=== PATIENT | female | born 1975 | race African-American/Black ===

== ENCOUNTER 2017-03-26 04:39 | Emergency (ER) | payer OTHER ==
[2017-03-26] MEDS ORDERED: Morphine 4 MG/ML Carpuject ONE (05:03)
[2017-03-26 05:37] LABS: BHCG - Serum Negative (NEGATIVE); Pregs Control Background? CLEAR/WHITE (CLR/WHITE); Pregs Control Bar Appear? YES (CONTROL BAR)
[2017-03-26 05:44] LABS: ALT (SGPT) 127 U/L (8-55); AST (SGOT) 167 U/L (5-34); Albumin 4.5 g/dL (3.5-5.0); Alkaline Phosphatase 82 U/L (40-150); Anion Gap 14 mmol/L (10-20); BUN (Urea Nitrogen) 7 mg/dL (7.0-18.7); Bilirubin, Total 0.5 mg/dL (0.2-1.2); Calc. Creatinine Clearance 0 mL/min (70-130); Calcium 10.3 mg/dL (7.8-10.44); Carbon Dioxide 27 mmol/L (22-29); Chloride 103 mmol/L (98-107); Estimated GFR-MDRD Greater than 90; Globulin 4.3 g/dL (2.4-3.5); Glucose 96 mg/dL (70-105); Lipase 39 U/L (8-78); Magnesium 1.6 mg/dL (1.6-2.6); Potassium 3.5 mmol/L (3.5-5.1); Protein, Total 8.8 g/dL (6.0-8.3); Sodium 140 mmol/L (136-145)
[2017-03-26 06:13] LABS: #Basophils 0.1 thou/uL (0.0-0.2); #Eosinphils 0.1 thou/uL (0.0-0.7); #Lymphocytes 3.1 thou/uL (1.20-3.40); #Monocytes 0.7 thou/uL (0.11-0.59); #Neutrophils 3.5 thou/uL (1.40-6.50); %Basophils 1.1 % (0.0-1.0); %Eosinophils 1.2 % (0.0-10.0); %Lymphocytes 41.5 % (21.0-51.0); %Monocytes 9.1 % (0.0-10.0); %Neutrophils 47.1 % (42.0-75.0); Hemoglobin 12.9 g/dL (12.0-16.0); MDiff Complete? YES; Mean Platelet Volume 8.5 fL (7.4-10.4); PLT Morphology Comment Appears Adequate; Platelet Count 282 thou/uL (130-400); RBC Distribution Width 11.1 % (11.5-14.5); Stomatocytes SLIGHT = 2-5 cells (100X) (0-1/hpf); White Blood Cell (WBC) Count 7.5 thou/uL (4.8-10.8)
[2017-03-26] MEDS ORDERED: Dicyclomine 20 MG TAB ONE (06:28)
[2017-03-26] MEDS ORDERED: Lidocaine Viscous Sol 2% 15 ml UD Cup ONE (06:28)
[2017-03-26] MEDS ORDERED: Mag-Al 1200 mg/1200 mg/30 ML UDCUP ONE (06:28)
--- NOTE | 2017-03-26 07:40 | CT ---
PRELIMINARY REPORT/[facility]/EMERGENCY AFTER HOURS PROCEDURE: EXAM: CT Abdomen and Pelvis With Intravenous Contrast CLINICAL HISTORY: 41 years old, female; Pain; Abdominal pain; Generalized; Patient HX: Abd pain TECHNIQUE: Axial computed tomography images of the abdomen and pelvis with intravenous contrast. Coronal reformatted images were created and reviewed. CONTRAST: 70 mL of ISOVUE administered intravenously. COMPARISON: No relevant prior studies available. FINDINGS: Lower thorax: No acute findings. ABDOMEN: Liver: Unremarkable. No mass. Gallbladder and bile ducts: Unremarkable. No calcified stones. No ductal dilation. Pancreas: Unremarkable. No mass. No ductal dilation. Spleen: Unremarkable. No splenomegaly. Adrenals: Unremarkable. No mass. Kidneys and ureters: Unremarkable. No solid mass. No hydronephrosis. Stomach and bowel: No obstruction. Mild mucosal thickening. Appendix: No findings to suggest acute appendicitis. PELVIS: Bladder: Decompressed and. Reproductive: Unremarkable as visualized. ABDOMEN and PELVIS: Intraperitoneal space: Unremarkable. No free air. No significant fluid collection. Bones/joints: No acute fracture. No dislocation. Soft tissues: Unremarkable. Vasculature: Unremarkable. No abdominal aortic aneurysm. Lymph nodes: Unremarkable. No enlarged lymph nodes. IMPRESSION: Nonspecific nonobstructed bowel gas pattern. Correlate for enteritis Thank you for allowing us to participate in the care of your patient. Dictated and Authenticated by: August Smith MD 03/26/2017 6:20 AM Central Time ([place] & [place]) FINAL REPORT CT OF THE ABDOMEN AND PELVIS: DATE: 03/26/17. COMPARISON: 01/22/16. HISTORY: Abdominal pain with right lower quadrant tenderness. FINDINGS: I agree with the preliminary [facility] report. Imaged lung bases are unremarkable. No free intraperitoneal air. The liver, spleen, gallbladder, pancreas, adrenal glands, and kidneys are unremarkable. There is questionable mild wall thickening versus underdistension of the cecum and ascending colon. Appendix is not discretely visualized. No convincing evidence for appendicitis seen. There is mild fluid-filed distended small bowel loop formation in lower abdomen and pelvis. There is scattered atherosclerotic calcification of the abdominal aorta and its branches with no lymp hadenopathy noted. No acute osseous abnormality is seen. IMPRESSION: There is mild distention of distal fluid-filled small bowel loops. There is questionable mild inflam matory change involving the ascending versus underdistension. These findings may represent colitis/e nteritis. No evidence for free intraperitoneal air, small bowel obstruction, or appendicitis. POS: [facility]
--- NOTE | 2017-03-26 07:41 | RAD ---
PORTABLE UPRIGHT FRONTAL CHEST: Date: 03/26/17 COMPARISON: 01/22/16. HISTORY: Right-sided abdominal pain, epigastric pain, shortness of breath. FINDINGS: No pneumothorax, pleural fluid, focal consolidation, or alveolar edema. Heart and mediastinal contour s are grossly unremarkable. IMPRESSION: No acute findings. POS: [facility]
[2017-03-26] MEDS ORDERED: ISOVUE-370 76%-LOCM 1 ML ONE (11:53)
== END 2017-03-26 08:03 | disposition home or self-care (01) ==
LOC: ERS 04:39
DX: A08.4 Viral intestinal infection, unspecified (principal); I10 Essential (primary) hypertension; F32.9 Major depressive disorder, single episode, unspecified; F17.210 Nicotine dependence, cigarettes, uncomplicated
CPT/HCPCS: 71045; 74177; 80053; 83690; 83735; 84703; 85025; 93005; 96361; 96374; J2270

== ENCOUNTER 2017-08-26 23:58 | Emergency (ER) | payer OTHER ==
[2017-08-27 00:32] LABS: #Basophils 0.1 thou/uL (0.0-0.2); #Eosinphils 0.1 thou/uL (0.0-0.7); #Lymphocytes 2.9 thou/uL (1.20-3.40); #Monocytes 0.5 thou/uL (0.11-0.59); #Neutrophils 2.7 thou/uL (1.40-6.50); %Basophils 1.5 % (0.0-1.0); %Eosinophils 1.7 % (0.0-10.0); %Lymphocytes 45.7 % (21.0-51.0); %Monocytes 8.4 % (0.0-10.0); %Neutrophils 42.7 % (42.0-75.0); Hemoglobin 12.7 g/dL (12.0-16.0); Mean Corpuscular HGB CONC 35.4 g/dL (32.0-36.0); Mean Corpuscular Hemoglobin 36.4 pg (27.0-31.0); Mean Platelet Volume 8.9 fL (7.4-10.4); Platelet Count 199 thou/uL (130-400); RBC Distribution Width 11.3 % (11.5-14.5); Red Blood Cell (RBC) Count 3.49 mill/uL (4.20-5.40); White Blood Cell (WBC) Count 6.4 thou/uL (4.8-10.8)
[2017-08-27 00:37] LABS: Prothrombin Time 12.9 SEC (12.0-14.7)
[2017-08-27 01:20] LABS: CKMB 0.3 ng/mL (0-6.6); Troponin I Less than 0.010 ng/mL (< 0.028)
[2017-08-27 01:22] LABS: ALT (SGPT) 79 U/L (8-55); AST (SGOT) 160 U/L (5-34); Albumin 4.4 g/dL (3.5-5.0); Alkaline Phosphatase 74 U/L (40-150); Anion Gap 19 mmol/L (10-20); BUN (Urea Nitrogen) 5 mg/dL (7.0-18.7); Bilirubin, Total 0.2 mg/dL (0.2-1.2); Calc. Creatinine Clearance 0 mL/min (70-130); Calcium 9.9 mg/dL (7.8-10.44); Carbon Dioxide 20 mmol/L (22-29); Chloride 102 mmol/L (98-107); Estimated GFR-MDRD Greater than 90; Globulin 4.4 g/dL (2.4-3.5); Glucose 81 mg/dL (70-105); Protein, Total 8.8 g/dL (6.0-8.3); Sodium 137 mmol/L (136-145)
[2017-08-27] MEDS ORDERED: Ibuprofen 200 MG TAB ONE (01:57)
--- NOTE | 2017-08-27 07:50 | RAD ---
CHEST 1 VIEW: HISTORY: Chest pain. COMPARISON: 03/26/17. FINDINGS: Cardiac silhouette magnified by projection. Pulmonary vasculature unremarkable. Mediastinum midline . No lobar consolidation or evidence of pneumothorax. Old right rib fracture. child advocate lead s overlie the chest. IMPRESSION: No active cardiopulmonary abnormalities are demonstrated. POS: [facility]
== END 2017-08-27 02:45 | disposition home or self-care (01) ==
LOC: ERS 23:58
DX: R07.89 Other chest pain (principal); R04.0 Epistaxis; I10 Essential (primary) hypertension; F32.9 Major depressive disorder, single episode, unspecified; F17.210 Nicotine dependence, cigarettes, uncomplicated
CPT/HCPCS: 71045; 80053; 82553; 84484; 85025; 85610; 93005; 96360

== ENCOUNTER 2018-03-14 00:33 | Inpatient (IN) | payer OTHER ==
[2018-03-14 01:10] LABS: Bilirubin Negative (Negative); Blood, Urine Negative (Negative); Clarity CLEAR (Clear); Glucose, Urine (Dipstick) Negative (Negative); Leukocyte Negative (Negative); Nitrite Negative (Negative); Protein, Urine (Dipstick) Negative (Neg-Trace); Specific Gravity, Urine 1.006 (1.002-1.036); Urobilinogen 0.2 mg/dL (0.2-1.0)
[2018-03-14 01:19] LABS: Amphetamine Not Detected (NotDetected); Barbiturates Screen Not Detected (NotDetected); Benzodiazepine Screen Not Detected (NotDetected); Cocaine Metabolite Screen Not Detected (NotDetected); Medtox Control Line Valid? VALID (VALID); Medtox Reader # READER 1; Methadone Not Detected (NotDetected); Methamphetamine Not Detected (NotDetected); Opiate Screen Not Detected (NotDetected); Oxycodone Screen Not Detected (NotDetected); Phencyclidine (PCP) Not Detected (NotDetected); THC/Cannabinoid Screen Not Detected (NotDetected); Tricyclic Screen Not Detected (NotDetected)
[2018-03-14 01:19] LABS: #Basophils 0.1 thou/uL (0.0-0.2); #Eosinphils 0.1 thou/uL (0.0-0.7); #Lymphocytes 3.3 thou/uL (1.20-3.40); #Monocytes 0.3 thou/uL (0.11-0.59); #Neutrophils 2.9 thou/uL (1.40-6.50); %Basophils 1.8 % (0.0-1.0); %Eosinophils 1.7 % (0.0-10.0); %Monocytes 4.5 % (0.0-10.0); %Neutrophils 43.1 % (42.0-75.0); Hemoglobin 13.3 g/dL (12.0-16.0); Mean Corpuscular HGB CONC 34.1 g/dL (32.0-36.0); Mean Corpuscular Hemoglobin 34.6 pg (27.0-31.0); Platelet Count 310 thou/uL (130-400); RBC Distribution Width 11.1 % (11.5-14.5); Red Blood Cell (RBC) Count 3.85 mill/uL (4.20-5.40); White Blood Cell (WBC) Count 6.6 thou/uL (4.8-10.8)
[2018-03-14 01:48] LABS: Acetaminophen Less than 6.0 mcg/mL (10.0-30.0); Alcohol 343 mg/dL (Less than 10); CK (CPK) 303 U/L (29-168); Salicylate Less than 8.0 mg/dL (15.0-30.0)
[2018-03-14 01:49] LABS: ALT (SGPT) 34 U/L (8-55); AST (SGOT) 83 U/L (5-34); Albumin 4.4 g/dL (3.5-5.0); Alkaline Phosphatase 82 U/L (40-150); Anion Gap 19 mmol/L (10-20); BUN (Urea Nitrogen) 4 mg/dL (7.0-18.7); Bilirubin, Total 0.2 mg/dL (0.2-1.2); Calc. Creatinine Clearance 0 mL/min (70-130); Calcium 9.8 mg/dL (7.8-10.44); Carbon Dioxide 22 mmol/L (22-29); Chloride 105 mmol/L (98-107); Estimated GFR-MDRD Greater than 90; Globulin 4.8 g/dL (2.4-3.5); Glucose 138 mg/dL (70-105); Protein, Total 9.2 g/dL (6.0-8.3); Sodium 143 mmol/L (136-145)
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
[2018-03-14] MEDS ORDERED: Sodium Chloride 0.9% 1,000 ML IV SCH (03:45)
[2018-03-14] MEDS ORDERED: Multivitamins, Adult 10 ML, Folic Acid 1 MG, Thiamine HCl 100 MG in Dextrose 5 %-0.45 %... IV SCH ×2 (04:00→09:23)
[2018-03-14] MEDS ORDERED: Potassium Chloride 40 MEQ in Sodium Chloride 0.9% 500 ML IVPB SCH (04:00)
[2018-03-14] MEDS ORDERED: CCU Electrolyte Replacement 1 EACH IVPB ONE (05:36)
[2018-03-14] MEDS ORDERED: Potassium Phosphate 9 MMOL in Sodium Chloride 0.9% 100 ML IVPB PRN (05:40)
[2018-03-14] MEDS ORDERED: Potassium Chloride 40 MEQ in Sodium Chloride 0.9% 250 ML 250 ML IVPB PRN (05:40)
[2018-03-14] MEDS ORDERED: Potassium Chloride 20 MEQ TAB PO PRN (05:40)
[2018-03-14] MEDS ORDERED: Potassium Phosphate 15 MMOL in Sodium Chloride 0.9% 250 ML 250 ML IV PRN (05:40)
[2018-03-14] MEDS ORDERED: Potassium Phosphate 12 MMOL in Sodium Chloride 0.9% 250 ML 250 ML IV PRN (05:40)
[2018-03-14] MEDS ORDERED: Magnesium 2 GM/NS 0.9% 100 ML 2 GM in Premix Bag 1 BAG IVPB PRN (05:40)
[2018-03-14] MEDS ORDERED: CCU ELECTROLYTE REPLACEMENT PROTOCOL FS PRN (05:40)
[2018-03-14] MEDS ORDERED: Magnesium Oxide 400 MG TAB PO PRN ×2 (05:40)
[2018-03-14] MEDS ORDERED: Potassium Chloride 40 MEQ in Premix Bag 1 BAG IVPB PRN (05:40)
[2018-03-14 06:23] LABS: Anion Gap 17 mmol/L (10-20); BUN (Urea Nitrogen) Less than 4 mg/dL (7.0-18.7); Calc. Creatinine Clearance 78 mL/min (70-130); Calcium 9.6 mg/dL (7.8-10.44); Carbon Dioxide 25 mmol/L (22-29); Chloride 103 mmol/L (98-107); Estimated GFR-MDRD Greater than 90; Glucose 112 mg/dL (70-105); Potassium 3.1 mmol/L (3.5-5.1); Sodium 142 mmol/L (136-145)
[2018-03-14 06:39] LABS: INR-International Normal Ratio 1.1; Prothrombin Time 14.3 SEC (12.0-14.7)
[2018-03-14 06:40] LABS: PTT 31.6 SEC (22.9-36.1)
[2018-03-14 06:58] LABS: Anion Gap 17 mmol/L (10-20); BUN (Urea Nitrogen) Less than 4 mg/dL (7.0-18.7); Calc. Creatinine Clearance 89 mL/min (70-130); Calcium 9.5 mg/dL (7.8-10.44); Carbon Dioxide 24 mmol/L (22-29); Chloride 104 mmol/L (98-107); Estimated GFR-MDRD Greater than 90; Glucose 129 mg/dL (70-105); Magnesium 1.9 mg/dL (1.6-2.6); Potassium 3.3 mmol/L (3.5-5.1); Sodium 142 mmol/L (136-145)
[2018-03-14 07:11] LABS: HBSAg Index 0.32 S/CO (0-0.99); Hep B Surf Ag Non-Reactive S/CO (NonReactive); Hep C IgG Ab Non-Reactive (NonReactive); Hep C Index 0.35 S/CO (0-0.79)
[2018-03-14 07:15] LABS: Syphilis Antibody Nonreactive (Nonreactive); Syphilis Antibody Index 0.36 S/CO (<1.00 Non-Reactive)
--- NOTE | 2018-03-14 07:26 | PDOC.EVN ---
Event Note - Event Note Event Note: Suspect patient took: Initially took tabs around 1930, then again at 0000 9 pills norvasc Unknown HCTZ Unknown Protonix Daily 30 beers drinker This AM patient is Ax0x3. States she has a headache unless she is asleep. Does not want to talk, "just let me sleep, and I'll talk to you tomorrow." Gen: no acute distress CV: RRR, no murmur Resp: CTA-B Abd: tender to palpation on RUQ, hepatomegaly Ext: pulses intact, no edema Addendum - Attending - Attending Attestation Date/Time: 03/14/18 8453 I personally evaluated the patient and discussed the management with Dr. Vicky Patel I agree with the History, Examination, Assessment and Plan documented above with any addition or exceptions noted below. Patient reluctant to cooperate with exam stress need continued observation.
[2018-03-14 07:59] LABS: HIV (1/2) Antibody/Antigen Non-Reactive (NonReactive)
[2018-03-14 08:00] LABS: HIV 1/2 INDEX 0.11 S/CO (<1.00)
[2018-03-14] MEDS ORDERED: Lorazepam 2 MG/ML VIAL SLOW IVP PRN (09:22)
--- NOTE | 2018-03-14 09:47 | CON ---
DATE OF CONSULTATION: 03/14/2018 SERVICE: Pulmonary Medicine. REASON FOR CONSULTATION: ICU patient. HISTORY OF PRESENT ILLNESS: The patient is a 42-year-old female with past medical history significant for polysubstance drug abuse and multiple suicide attempts. She was in her usual state of health when she intentionally overdosed on amlodipine, Protonix, and hydrochlorothiazide. The patient also has a significant history of alcohol use. Ultimately, she took these things in because she wanted to . She was subsequently brought to the emergency department. Poison Control has recommended that we follow basic metabolic profile and EKGs for an additional 24 hours. That being said, the ingestion was around 7:00 yesterday evening, and at this point, she is not having any significant hemodynamic instability. Her heart rate remains just fine. The patient hurts everywhere you touch her. She hurts in her belly, chest, had complaints of headache, lower extremity discomfort. PAST MEDICAL HISTORY: 1. Major depressive disorder. 2. History of alcoholic hepatitis. 3. Alcohol abuse. 4. History of multiple suicide attempts. PAST SURGICAL HISTORY: Hysterectomy. FAMILY HISTORY: Noncontributory. SOCIAL HISTORY: She has a 30 pack-year history of smoking and has a very heavy alcohol use over 30 beers on a daily basis. She denies any significant street drugs. She has no exposure to chemicals, dust, asbestos, or tuberculosis. ALLERGIES: NO KNOWN DRUG ALLERGIES. MEDICATIONS: List of her inpatient medications was reviewed and modified. REVIEW OF SYSTEMS: General, head, ears, eyes, nose, and throat, cardiovascular, respiratory, GI, , musculoskeletal, neurologic, and skin are negative except as mentioned in the HPI. PHYSICAL EXAMINATION: VITAL SIGNS: Afebrile. Pulse 95, blood pressure 124/85, respirations 15, and saturation 95% on room air. GENERAL: The patient is awake and alert, in no apparent distress. LUNGS: Decent air entry. There is no prolonged expiratory phase or wheezing present. HEART: Normal rate, regular. ABDOMEN: Tender to palpation throughout. That being said, there is no rebound or guarding. Bowel sounds are active. : No Gallegos. NEUROLOGIC: Grossly nonfocal. LABORATORY DATA: WBC 6.6, hemoglobin 13.3, platelets 310,000. INR 1.1. Potassium 3.3. Basic metabolic profile is otherwise unremarkable. Magnesium 1.9. Alcohol level is 343. Urine drug screen, salicylates, and acetaminophen are otherwise negative. HIV is nonreactive. Hepatitis C and hepatitis B are nonreactive. Syphilis is nonreactive. ASSESSMENT: 1. Suicide attempt with overdose on calcium-channel hilton, and hydrochlorothiazide and Protonix. 2. Alcohol abuse with no reported history of withdrawal. 3. Suicide attempt. DISCUSSION AND PLAN: At this point, the patient is over 12 hours in from her ingestion. Hemodynamically, she has been stable. As such, we can transition the patient to the telemetry unit for additional observation for another 24 hours. I will replace her potassium. I will initiate some alcohol to prevent any withdrawal features as the patient has no intentions of discontinuing this habit. Pulmonary will continue to follow for one additional day, but if she demonstrates hemodynamic stability into tomorrow, we will sign off. Please call with additional questions or concerns. Job ID: [id number]
[2018-03-14] MEDS ORDERED: Magnesium 2 GM/50 ML 2 GM in Premix Bag 1 BAG IVPB SCH (10:30)
[2018-03-14] MEDS: Folic Acid 1 MG TAB PO SCH (11:03)
[2018-03-14] MEDS: Potassium Chloride 20 MEQ TAB PO SCH ×2 (11:03→14:14)
[2018-03-14] MEDS: Enoxaparin Sodium 40 MG/0.4 ML SYRINGE SC SCH (11:04)
[2018-03-14] MEDS: Nicotine 21 MG PATCH TD SCH (11:04)
[2018-03-14] MEDS: Sodium Chloride 0.45% 1,000 ML IV SCH ×2 (11:18→23:00)
[2018-03-14 13:37] LABS: ALT (SGPT) 31 U/L (8-55); AST (SGOT) 78 U/L (5-34); Albumin 4.2 g/dL (3.5-5.0); Alkaline Phosphatase 77 U/L (40-150); Anion Gap 16 mmol/L (10-20); BUN (Urea Nitrogen) Less than 4 mg/dL (7.0-18.7); Bilirubin, Total 0.4 mg/dL (0.2-1.2); Calc. Creatinine Clearance 77 mL/min (70-130); Calcium 9.4 mg/dL (7.8-10.44); Carbon Dioxide 23 mmol/L (22-29); Chloride 104 mmol/L (98-107); Estimated GFR-MDRD Greater than 90; Globulin 4.6 g/dL (2.4-3.5); Glucose 101 mg/dL (70-105); Potassium 3.4 mmol/L (3.5-5.1); Protein, Total 8.8 g/dL (6.0-8.3); Sodium 140 mmol/L (136-145)
--- NOTE | 2018-03-14 14:01 | ULT ---
HEPATIC SONOGRAM WITH DUPLEX EVALUATION: History Liver disease. FINDINGS: Gallbladder has a normal appearance without evidence of stones. The common duct is 0.3 cm. Liver un remarkable without focal mass or intrahepatic biliary dilatation. The spleen is 6.5 cm. NO free flu id. Good color flow and spectral Doppler flow within the hepatic and splenic arteries. Poral venous flow is towards the liver. Hepatic venous flow is towards the IVC. IMPRESSION: Normal exam. POS: [facility]
[2018-03-14] MEDS: Lorazepam 1 MG TAB PO SCH ×2 (14:15→20:21)
[2018-03-14 15:26] LABS: ALT (SGPT) 33 U/L (8-55); AST (SGOT) 82 U/L (5-34); Albumin 4.3 g/dL (3.5-5.0); Alkaline Phosphatase 80 U/L (40-150); Anion Gap 18 mmol/L (10-20); BUN (Urea Nitrogen) Less than 4 mg/dL (7.0-18.7); Bilirubin, Total 0.5 mg/dL (0.2-1.2); Calc. Creatinine Clearance 73 mL/min (70-130); Calcium 9.9 mg/dL (7.8-10.44); Carbon Dioxide 22 mmol/L (22-29); Chloride 101 mmol/L (98-107); Estimated GFR-MDRD Greater than 90; Globulin 4.9 g/dL (2.4-3.5); Glucose 92 mg/dL (70-105); Magnesium 2.6 mg/dL (1.6-2.6); Protein, Total 9.2 g/dL (6.0-8.3); Sodium 137 mmol/L (136-145)
[2018-03-14] MEDS: Labetalol HCl 100 MG/20 ML VIAL SLOW IVP PRN (19:12)
[2018-03-14 19:40] LABS: ALT (SGPT) 35 U/L (8-55); AST (SGOT) 85 U/L (5-34); Albumin 4.6 g/dL (3.5-5.0); Alkaline Phosphatase 86 U/L (40-150); Anion Gap 16 mmol/L (10-20); BUN (Urea Nitrogen) 7 mg/dL (7.0-18.7); Bilirubin, Total 0.7 mg/dL (0.2-1.2); Calc. Creatinine Clearance 68 mL/min (70-130); Calcium 10.4 mg/dL (7.8-10.44); Carbon Dioxide 27 mmol/L (22-29); Chloride 99 mmol/L (98-107); Estimated GFR-MDRD Greater than 90; Globulin 4.6 g/dL (2.4-3.5); Glucose 104 mg/dL (70-105); Magnesium 2.3 mg/dL (1.6-2.6); Potassium 4.5 mmol/L (3.5-5.1); Protein, Total 9.2 g/dL (6.0-8.3); Sodium 137 mmol/L (136-145)
[2018-03-14 23:24] LABS: ALT (SGPT) 29 U/L (8-55); AST (SGOT) 69 U/L (5-34); Alkaline Phosphatase 75 U/L (40-150); Anion Gap 14 mmol/L (10-20); BUN (Urea Nitrogen) 9 mg/dL (7.0-18.7); Bilirubin, Total 0.6 mg/dL (0.2-1.2); Calc. Creatinine Clearance 63 mL/min (70-130); Calcium 9.7 mg/dL (7.8-10.44); Carbon Dioxide 24 mmol/L (22-29); Chloride 98 mmol/L (98-107); Estimated GFR-MDRD Greater than 90; Globulin 4.3 g/dL (2.4-3.5); Glucose 109 mg/dL (70-105); Potassium 4.1 mmol/L (3.5-5.1); Protein, Total 8.3 g/dL (6.0-8.3); Sodium 132 mmol/L (136-145)
[2018-03-14] MEDS ORDERED: Promethazine HCl 25 MG/ML VIAL IM SCH (23:43)
[2018-03-15 05:24] LABS: #Eosinphils 0.1 thou/uL (0.0-0.7); #Lymphocytes 1.6 thou/uL (1.20-3.40); #Monocytes 0.4 thou/uL (0.11-0.59); #Neutrophils 3.9 thou/uL (1.40-6.50); %Basophils 0.3 % (0.0-1.0); %Eosinophils 1.3 % (0.0-10.0); %Lymphocytes 26.6 % (21.0-51.0); %Monocytes 5.9 % (0.0-10.0); %Neutrophils 65.9 % (42.0-75.0); Hemoglobin 12.6 g/dL (12.0-16.0); Mean Corpuscular HGB CONC 34.2 g/dL (32.0-36.0); Mean Platelet Volume 8.8 fL (7.4-10.4); Platelet Count 237 thou/uL (130-400); RBC Distribution Width 11.1 % (11.5-14.5); Red Blood Cell (RBC) Count 3.61 mill/uL (4.20-5.40); White Blood Cell (WBC) Count 5.9 thou/uL (4.8-10.8)
[2018-03-15 05:48] LABS: Anion Gap 16 mmol/L (10-20); BUN (Urea Nitrogen) 7 mg/dL (7.0-18.7); Calc. Creatinine Clearance 86 mL/min (70-130); Calcium 9.8 mg/dL (7.8-10.44); Carbon Dioxide 25 mmol/L (22-29); Chloride 97 mmol/L (98-107); Estimated GFR-MDRD Greater than 90; Glucose 80 mg/dL (70-105); Potassium 3.8 mmol/L (3.5-5.1); Sodium 134 mmol/L (136-145)
[2018-03-15] MEDS: Nicotine 21 MG PATCH TD SCH (06:19)
--- NOTE | 2018-03-15 07:00 | PDOC.FM ---
- Subjective Subjective: This morning patient states her headache is totally resolved and she does not have any pain at this time. She states she is able to walk to the restroom without difficulty. Tolerating PO well. Had one epidsode of vomiting overnight, resolved after phenergan. No chest pain, sob, or palpitations. Patient states she took the pills because of a family conflict which she does not feel comfortable talking about at this time. She was trying to kill herself. States she is not feeling suicidal at this moment in time. States she thinks the situation will be resolved by the time she gets home. She would deal with conflict in the future by going to her mother's house. She plans to quit drinking, understands health risks. Plans to attend AA. Has the book and the carolyn. States she does not need list of available meetings. - Objective Vital Signs & Weight: Vital Signs (12 hours) Temp Pulse Resp BP BP Pulse Ox 03/15/18 03:42 99.3 F 101 H 18 125/98 H 97 03/14/18 23:10 99.1 F 102 H 16 120/89 97 03/14/18 19:12 97 143/107 H Weight Weight 50.3 kg Most Recent Monitor Data Heart Rate from ECG 97 NIBP 139/104 NIBP BP-Mean 115 Respiration from ECG 20 SpO2 97 I&O: 03/13/18 03/14/18 03/15/18 06:59 06:59 06:59 Intake Total 832 2278 Output Total 1200 Balance 832 1078 Result Diagrams: 03/15/18 04:25 03/15/18 04:25 Phys Exam - Physical Examination Constitutional: NAD HEENT: PERRLA, moist MMs Neck: no nodes, full ROM Respiratory: no wheezing, clear to auscultation bilateral Cardiovascular: RRR, no significant murmur Gastrointestinal: soft, non-tender, no distention, positive bowel sounds Musculoskeletal: no edema, pulses present Neurological: non-focal, moves all 4 limbs Psychiatric: normal affect, A&O x 3 Skin: no rash, cap refill <2 seconds Dx/Plan (1) Acute alcoholic intoxication Code(s): F10.929 - ALCOHOL USE, UNSPECIFIED WITH INTOXICATION, UNSPECIFIED Status: Acute (2) History of suicide attempt Code(s): Z91.5 - PERSONAL HISTORY OF SELF-HARM Status: Chronic (3) MDD (major depressive disorder) Code(s): F32.9 - MAJOR DEPRESSIVE DISORDER, SINGLE EPISODE, UNSPECIFIED Status : Chronic (4) Alcohol withdrawal Code(s): F10.239 - ALCOHOL DEPENDENCE WITH WITHDRAWAL, UNSPECIFIED Status: Acute Qualifiers: Complication of substance-induced condition: with delirium Qualified Code(s ): F10.231 - Alcohol dependence with withdrawal delirium (5) Suicide attempt Status: Acute (6) ETOH abuse Code(s): F10.10 - ALCOHOL ABUSE, UNCOMPLICATED Status: Chronic (7) HTN (hypertension) Code(s): I10 - ESSENTIAL (PRIMARY) HYPERTENSION Status: Chronic - Plan Plan: suicide attempt via overdose -contacted [facility] as patient is medically stable amlodipine/HCTZ/protonix overdose -s/p 24 hours of monitoring and labwork, WNL, stable for d/c medically acute alcohol intoxication -currently completely alert and oriented x 4 - ASE scores: 2, 3, 3 - received ativan, will plan to transition to librium QT-prolongation - will re-check EKG this AM Hypertensive urgency - now controlled Elevated AST -severely elevated in 12/2017 in clinic - AST trending around 80 major depression -not currently on medication -says she only wants someone to talk to -not currently engaged in therapy - plans to f/u with AA GERD -hold prontonix for now tobacco abuse -will provide nicotine patch PRN -cessation counseling provided. PCP: Tano Sherwood MD Diet: regular Code Status: FULL DVT ppx: lovenox GI ppx: none Addendum - Attending - Attending Attestation Date/Time: 03/15/18 2157 I personally evaluated the patient and discussed the management with Dr. Patel. I agree with the History, Examination, Assessment and Plan documented above with any addition or exceptions noted below. Pt is medically stable. Sitter remains at bedside. Waiting on [facility] evaluation.
[2018-03-15] MEDS: Enoxaparin Sodium 40 MG/0.4 ML SYRINGE SC SCH (08:32)
[2018-03-15] MEDS: Labetalol HCl 100 MG/20 ML VIAL SLOW IVP PRN (08:32)
[2018-03-15] MEDS: Lorazepam 1 MG TAB PO SCH (08:34)
[2018-03-15] MEDS: Folic Acid 1 MG TAB PO SCH (08:34)
[2018-03-15] MEDS ORDERED: Multivitamins, Adult 10 ML, Folic Acid 1 MG, Thiamine HCl 100 MG in Dextrose 5 %-0.45 %... IV SCH (09:00)
[2018-03-15] MEDS: Sodium Chloride 0.45% 1,000 ML IV SCH ×3 (11:28→23:24)
--- NOTE | 2018-03-15 13:20 | PRG ---
DATE OF SERVICE: 03/15/2018 SUBJECTIVE: The patient is awake, alert. No complaints. Says she is not currently suicidal. OBJECTIVE: VITAL SIGNS: Temperature 99.3, pulse 95, respirations 20, O2 saturation 97%, blood pressure 133/96. HEENT: Unremarkable. NECK: No JVD. CHEST: Clear. CARDIAC: S1, S2. Regular. ABDOMEN: Soft. EXTREMITIES: No edema. LABORATORY DATA: White blood cell count 5.9, hematocrit 36.9, and platelet count 237. Sodium 134, potassium 3.8, BUN 7, creatinine 0.6, glucose 80. ASSESSMENT: Status post intentional overdose with calcium channel hilton, hydrochlorothiazide, and Protonix. RECOMMENDATION: She appears to be medically clear for a [facility] disposition. Pulmonary will sign off. Please re-call, if any further assistance needed in this case. Job ID: [id number]
[2018-03-15 14:19] VITALS: BMI 20.2
[2018-03-15] MEDS ORDERED: chlordiazePOXIDE HCl 25 MG CAP PO SCH (16:00)
--- NOTE | 2018-03-15 19:08 | PDOC.EVN ---
Event Note - Event Note Event Note: Called by nursing staff informing residents that patient had "new ST depressions and T wave inversion" on telemetry strip. These started after she was informed she would be discharged to [facility]. A 12 lead EKG was ordered and showed sinus tachycardia that was unchanged from her most recent EKG. I spoke with the patient who stated she wanted to go home to "spend time with her grandbabies" and she promised she would check in to [facility] tomorrow morning. I also spoke with [facility] casework who stated she felt the patient was unsafe to be discharged give history of multiple suicide attempts and recent suicide attempt. I agree with her assessment. Patient has been discharged to [facility] at this time. Relayed information to Dr. Figueroa Patel, patient' s primary provider during this hospitalization.
[2018-03-15] MEDS ORDERED: Lorazepam 1 MG TAB PO SCH (21:00)
[2018-03-16 00:14] VITALS: BP 142/109; TEMP 99.5
--- NOTE | 2018-03-16 12:33 | DIS ---
DATE OF ADMISSION: 03/14/2018 DATE OF DISCHARGE: 03/15/2018 RESIDENT: Figueroa Patel MD. ADMITTING ATTENDING: Cliff Pope MD. DISCHARGE ATTENDING: Fidelina Adan MD CONSULTS: 1. MR. 2. Pulmonology. PROCEDURES: None. PRIMARY DIAGNOSIS: Medication Overdose, suicide attempt SECONDARY DIAGNOSES: 1. Depression. 2. Hypertension. 3. Suicide attempt. 4. Alcohol abuse. 5. Alcohol dependent. 6. Alcohol withdrawal. DISCHARGE MEDICATIONS: 1. Librium taper. 2. Hydrochlorothiazide. 3. Amlodipine. 4. Citalopram. Discontinued medications, none. HISTORY OF PRESENT ILLNESS AND HOSPITAL COURSE: This is a 42-year-old female, who presented to the ER after taking 9 pills of amlodipine at 7:30 p.m. on 2017 followed by unknown quantity of hydrochlorothiazide and Protonix at midnight on same day. On arrival to the ED, the patient admitted that she drinks about 30 beers a day. She stated that she had always been depressed and had multiple suicide attempts. This was her second overdose this year. She states that she did this because of a family conflict. She stated in the ER that she did not want to kill herself. She did say that she originally took the pills at the attempt of killing herself. Denied pain at the time of admission. Poison control was called and recommended CMP, magnesium, EKG q.4 hours for 24 hours. EKGs wereI within normal limits with the exception of T-wave inversion. Troponin was taken and this was noted to be negative. Around the time of discharge, on telemetry new ST depressions with T-wave inversion was noted. These started after the patient was informed that she will be discharged to [facility]. A 12-lead EKG was ordered and showed sinus tachycardia, unchanged from more recent EKG. The patient stated that she was angry about going to [facility]. [facility] pillowcase folder stated that she felt the patient was unsafe to be discharged home because of history of multiple suicide attempts, and so ultimately, the patient was transferred to [facility] for further care. The patient was also noted to have mild tachycardia in high 90s low 100s throughout the stay. Her ASE scores on date of discharge were less than 3 throughout the day. She was started on librium taper while in the hospital as she stated she intends to stop drinking. RUQ ultrasound was also completed and showed no acute processes. Hypertension medications were restarted on the 2nd day of admission as the patient's blood pressure was elevated. By the time of discharge, the patient's blood pressure was within normal limits. DISPOSITION: Stable. DISCHARGE INSTRUCTIONS: Location: [facility]. Diet: Regular. Activity: As tolerated. FOLLOWUP: 1. [facility] appointment on 03/22/2018. 2. Primary care provider in 1 to 2 weeks. Caution with medications with overdose potential, consider prescribing limited quantities and patient has hx of mult overdose attempts. Job ID: [id number] MTDD
== END 2018-03-16 00:11 | disposition short-term general hospital (02) | DRG 918 ==
LOC: ERS 00:33 → CCU 02:08 → 2SE 18:05
PROVIDERS: ADMIT Family Medicine; ATTEND Family Medicine
DX: T48.6X2A Poisoning by antiasthmatics, intentional self-harm, initial encounter (principal); F10.239 Alcohol dependence with withdrawal, unspecified; F32.9 Major depressive disorder, single episode, unspecified; T50.2X2A Poisoning by carbonic-anhydrase inhibitors, benzothiadiazides and other diuretics, intentional self-harm, initial encounter; T47.1X2A Poisoning by other antacids and anti-gastric-secretion drugs, intentional self-harm, initial encounter; R00.0 Tachycardia, unspecified; I10 Essential (primary) hypertension; Z91.5 Personal history of self-harm; I45.81 Long QT syndrome; K21.9 Gastro-esophageal reflux disease without esophagitis; F17.210 Nicotine dependence, cigarettes, uncomplicated; K70.10 Alcoholic hepatitis without ascites; E87.6 Hypokalemia; I16.0 Hypertensive urgency
CPT/HCPCS: 36415; 76705; 80048; 80053; 80306; 80307; 81003; 82550; 83735; 84443; 84484; 85025; 85610; 85730; 86780; 86803; 87340; 87389; 93005; 93010; 94760; 96360; 96361; J1650; J2550; J3411; J3480; J7042; J7050

== ENCOUNTER 2018-05-01 14:42 | Observation (INO) | payer OTHER ==
[~2018-05-01 14:42] MED LIST: ISOVUE-370 76%-LOCM 1 ML ONE
[2018-05-01 15:21] LABS: #Basophils 0.1 thou/uL (0.0-0.2); #Eosinphils 0.1 thou/uL (0.0-0.7); #Lymphocytes 1.9 thou/uL (1.20-3.40); #Monocytes 0.9 thou/uL (0.11-0.59); #Neutrophils 4.3 thou/uL (1.40-6.50); %Basophils 0.9 % (0.0-1.0); %Lymphocytes 25.9 % (21.0-51.0); %Monocytes 11.8 % (0.0-10.0); %Neutrophils 60.5 % (42.0-75.0); Hemoglobin 12.4 g/dL (12.0-16.0); Mean Corpuscular HGB CONC 32.5 g/dL (32.0-36.0); Mean Corpuscular Hemoglobin 34.1 pg (27.0-31.0); Mean Platelet Volume 7.9 fL (7.4-10.4); Platelet Count 395 thou/uL (130-400); RBC Distribution Width 12.6 % (11.5-14.5); Red Blood Cell (RBC) Count 3.65 mill/uL (4.20-5.40); White Blood Cell (WBC) Count 7.2 thou/uL (4.8-10.8)
[2018-05-01 15:32] LABS: ALT (SGPT) 55 U/L (8-55); AST (SGOT) 85 U/L (5-34); Albumin 4.3 g/dL (3.5-5.0); Alkaline Phosphatase 78 U/L (40-150); Anion Gap 15 mmol/L (10-20); BUN (Urea Nitrogen) 6 mg/dL (7.0-18.7); Bilirubin, Total 0.4 mg/dL (0.2-1.2); Calc. Creatinine Clearance 0 mL/min (70-130); Carbon Dioxide 26 mmol/L (22-29); Chloride 102 mmol/L (98-107); Estimated GFR-MDRD Greater than 90; Globulin 4.6 g/dL (2.4-3.5); Glucose 75 mg/dL (70-105); Lipase 33 U/L (8-78); Potassium 3.2 mmol/L (3.5-5.1); Protein, Total 8.9 g/dL (6.0-8.3); Sodium 140 mmol/L (136-145)
--- NOTE | 2018-05-01 16:25 | CT ---
CT ANGIOGRAM THORAX WITH IV CONTRAST AND 3D RECONSTRUCTIONS: 05/01/18 HISTORY: Right sided chest pain and cough. COMPARISON: 04/10/13. FINDINGS: No filling defects are seen in the pulmonary arteries to suggest a pulmonary embolus. Minimal vascular calcifications are seen in the abdominal aorta with associated atherosclerotic plaqu e primarily involving the descending thoracic aorta which has progressed from the prior exam. The tho racic aorta is normal in caliber without evidence of an aortic dissection. There is atelectasis present in the left lower lobe and to a lesser extent in the right lower lobe an d involving the right middle lobe. No pulmonary nodule, mass, or pleural effusion is identified. No o ther interval change. Atherosclerotic vascular calcifications and plaque are seen involving the visualized proximal abdomin al aorta as well as superior mesenteric artery. Remainder of the visualized upper abdomen demonstrate s a grossly normal CT appearance for arterial phase of imaging. There has been no other interval change from prior exam. IMPRESSION: 1. No CT evidence of a pulmonary embolus. 2. Suggestion of mild thickening involving the thoracic esophagus which is more prominent than t he study in 2014. This is overall nonspecific. Depending on clinical concern, endoscopy can be perfor med for further evaluation. 3. Atherosclerotic calcifications and plaque in the thoracic as well as visualized upper abdomin al aorta. 1. POS: [facility]
[2018-05-01] MEDS ORDERED: Ketorolac Tromethamine 30 MG/ML VIAL ONE (17:03)
[2018-05-01] MEDS ORDERED: Aspirin Chewable 81 MG TAB ONE (18:44)
[2018-05-01 18:54] LABS: Troponin I Less than 0.010 ng/mL (< 0.028)
[2018-05-01 19:49] VITALS: BMI 18.3
[2018-05-01] MEDS ORDERED: Ondansetron ODT 4 MG TAB SL PRN (19:49)
[2018-05-01] MEDS ORDERED: Ondansetron PF 4 MG/2 ML Vial IVP PRN (19:49)
[2018-05-01] MEDS ORDERED: Acetaminophen 325 MG TAB PO PRN (19:49)
[2018-05-01 21:50] LABS: Troponin I Less than 0.010 ng/mL (< 0.028)
--- NOTE | 2018-05-01 22:53 | PDOC.FPRHP ---
- History of Present Illness Chief Complaint: chest pain History of Present Illness: Pt p/w chest pain that began this morning. She awoke and almost immediately had a a sharp right sided pain that did not radiate. It was not associated with activity and she has found nothing that relieves it. The pain only last 2-5 seconds at a time, but it can occur numerous times in a row. She denies any palpitations, shortness of breath, n/v/d, diaphoresis. Denies any crescendo nature to the chest pain. Rated as an 8/10 pain. ED: toradol 15 mg - Allergies/Adverse Reactions Allergies Allergy/AdvReac Type Severity Reaction Status Date / Time No Known Drug Allergies Allergy Verified 05/01/18 19:58 - Home Medications Medication Instructions Recorded Confirmed Type Hydrochlorothiazide 25 mg PO DAILY 03/14/18 05/01/18 History Pantoprazole Sodium 40 mg PO DAILY 03/14/18 05/01/18 History Amlodipine [Norvasc] 10 mg PO DAILY 05/01/18 05/01/18 History - History PMHx: alcoholic steatohepatitis, Depression, GERD, HTN, EtOH abuse, hx of suicide attempt PSHx: hysterectomy FHx: mother with HTN, DMII, bipolar DO, schizophrenia Social: smoke cigarettes 1PPD for 30 years, drinks daily but would not say how much - Review of Systems General: reports: weight/appetite/sleep changes (no appetite has led to weight loss). denies: fever/chills Eyes: denies: eye pain, vision changes ENT: denies: nasal congestion, rhinorrhea Respiratory: reports: cough. denies: congestion, shortness of breath Cardiovascular: reports: chest pain. denies: palpitation, edema Gastrointestinal: denies: nausea, vomiting, diarrhea Skin: denies: rashes, lesions Musculoskeletal: denies: pain, tenderness Neurological: denies: seizure, weakness Psychological: denies: anxiety, depression - Vital signs BP: 138/95 mmHg HR: 75 RR: 16 Tmax: 98.9F Pox: 96% on RA Wt: 45 kg - Physical Exam Constitutional: NAD, awake, alert and oriented HEENT: PERRLA, EOMI Neck: supple, trachea midline Chest: no-tender to palpation, no lesions Heart: RRR, normal S1/S2, no murmurs/rubs/gallops Lungs: CTAB, no respiratory distress Abdomen: soft, non-tender, bowel sounds present Musculoskeletal: normal tone, ROM grossly normal Neurological: no focal deficit, CN II-XII intact Skin: no rash/lesions, good turgor Heme/Lymphatic: no unusual bruising or bleeding Psychiatric: intact recent and remote memory -Psychiatric: patient appears agitated FMR H&P: Results - Labs Result Diagrams: 05/01/18 14:59 05/02/18 04:37 Lab results: WBC 7.2 thou/uL (4.8-10.8) 05/01/18 14:59 Hgb 12.4 g/dL (12.0-16.0) 05/01/18 14:59 Hct 38.3 % (36.0-47.0) 05/01/18 14:59 MCV 105.0 fL (78.0-98.0) H 05/01/18 14:59 Plt Count 395 thou/uL (130-400) 05/01/18 14:59 Neutrophils % 60.5 % (42.0-75.0) 05/01/18 14:59 Sodium 140 mmol/L (136-145) 05/01/18 14:59 Potassium 3.2 mmol/L (3.5-5.1) L 05/01/18 14:59 Chloride 102 mmol/L (98-107) 05/01/18 14:59 Carbon Dioxide 26 mmol/L (22-29) 05/01/18 14:59 BUN 6 mg/dL (7.0-18.7) L 05/01/18 14:59 Creatinine 0.63 mg/dL (0.6-1.1) 05/01/18 14:59 Glucose 75 mg/dL (70-105) 05/01/18 14:59 Calcium 10.0 mg/dL (7.8-10.44) 05/01/18 14:59 Total Bilirubin 0.4 mg/dL (0.2-1.2) 05/01/18 14:59 AST 85 U/L (5-34) H 05/01/18 14:59 ALT 55 U/L (8-55) 05/01/18 14:59 Alkaline Phosphatase 78 U/L (40-150) 05/01/18 14:59 B-Natriuretic Peptide 61.0 pg/mL (0-100) 05/01/18 14:59 Serum Total Protein 8.9 g/dL (6.0-8.3) H 05/01/18 14:59 Albumin 4.3 g/dL (3.5-5.0) 05/01/18 14:59 Lipase 33 U/L (8-78) 05/01/18 14:59 - EKG Interpretation EKG: NSR with possible ST segment depressions on tele print out - Radiology Interpretation CT scan - chest Status: report reviewed by me (negative for PE, calcified aorta, thickening of thoracic esophagus) FMR H&P: A/P - Problem List (1) Atypical chest pain Current Visit: Yes Status: Acute Code(s): R07.89 - OTHER CHEST PAIN Assessment and Plan: -troponin negative x 2 -EKG with no ST elevations on presentation -telemetry print out shows slight ST depressions so we will repeat an EKG at this time -morphine and nitrates available for pain, but will try to control with toradol -continue ASA -Heart score of 3 -will make NPO tonight in anticipation of stress test in AM (2) Hypokalemia Current Visit: No Status: Acute Code(s): E87.6 - HYPOKALEMIA Assessment and Plan: -add KCl to medications -recheck on BMP (3) ETOH abuse Current Visit: No Status: Chronic Code(s): F10.10 - ALCOHOL ABUSE, UNCOMPLICATED Assessment and Plan: -start ASE protocol -not currently symptomatic from withdrawal -vital signs stable -AST elevated at 85 -chart review reveals that this is the lowest it has been in several years -Abd US in June 2016 shows steatohepatitis (4) HTN (hypertension) Current Visit: No Status: Chronic Code(s): I10 - ESSENTIAL (PRIMARY) HYPERTENSION Assessment and Plan: -continue home amlodipine and HCTZ -normotensive at time of admission (5) History of depression Current Visit: No Status: Chronic Code(s): Z86.59 - PERSONAL HISTORY OF OTHER MENTAL AND BEHAVIORAL DISORDERS Assessment and Plan: -per centricity review, has not refilled celexa recently - Plan F/u EKG now and prepare patient for stress test in the AM. No tenderness of anterior chest wall that would indicate costochondritis, even though her pain resolved with toradol. Possibly esophageal spasm or more likely pericarditis. This patient was seen and examined with Dr. Pope who agrees with the assessment and plan. FMR H&P: Upper Level - Plan Date/Time: 05/01/18 8307 Addendum - Attending - Attending Attestation Date/Time: 05/02/18 4606 I personally evaluated the patient and discussed the management with Drs. Chaudhari/ Amanda I agree with the History, Examination, Assessment and Plan documented above with any addition or exceptions noted below.
[2018-05-01] MEDS ORDERED: Morphine 4 MG/ML VIAL SLOW IVP PRN (23:00)
[2018-05-01] MEDS ORDERED: Nitroglycerin 0.4 MG TAB (25 Tab Bottle) PO PRN (23:11)
[2018-05-01] MEDS ORDERED: Aspirin 81 mg Enteric Coated Tablet PO SCH (23:30)
[2018-05-02] MEDS ORDERED: Diazepam 5 MG TAB PO PRN (00:05)
[2018-05-02] MEDS ORDERED: Thiamine HCl 200 MG/2 ML VIAL IM SCH (00:15)
[2018-05-02] MEDS ORDERED: Diazepam 5 MG TAB PO SCH (00:15)
[2018-05-02] MEDS: Nitroglycerin 2% Ointment 1 INCH/1 GM Packet TOP SCH ×3 (01:25→15:44)
[2018-05-02] MEDS: Ketorolac Tromethamine 30 MG/ML VIAL IVP PRN ×2 (03:44→18:03)
[2018-05-02 06:32] LABS: Anion Gap 14 mmol/L (10-20); BUN (Urea Nitrogen) 11 mg/dL (7.0-18.7); Calc. Creatinine Clearance 87 mL/min (70-130); Calcium 9.2 mg/dL (7.8-10.44); Carbon Dioxide 27 mmol/L (22-29); Chloride 102 mmol/L (98-107); Estimated GFR-MDRD Greater than 90; Glucose 80 mg/dL (70-105); Sodium 140 mmol/L (136-145)
[2018-05-02 06:36] LABS: Potassium 2.7 mmol/L (3.5-5.1)
[2018-05-02 08:11] LABS: Magnesium 1.5 mg/dL (1.6-2.6); Phosphorus 3.7 mg/dL (2.3-4.7)
[2018-05-02] MEDS: Potassium Chloride 20 MEQ in Premix Bag 1 BAG IVPB SCH ×2 (08:19→11:17)
--- NOTE | 2018-05-02 08:20 | PDOC.FM ---
- Subjective Subjective: No acute events overnight. No chest pain, has resolved with toradol x1. No SOB. - Objective MAR Reviewed: Yes Vital Signs & Weight: Vital Signs (12 hours) Temp Pulse Resp BP BP BP Pulse Ox 05/02/18 08:00 98.6 F 75 16 129/86 95 05/02/18 04:24 73 16 126/80 126/80 96 05/02/18 03:44 98.0 F 74 20 157/102 H 157/102 H 98 05/02/18 01:15 117/73 05/01/18 23:10 97.9 F 76 16 117/73 97 Weight Weight 45.541 kg I&O: 05/01/18 05/02/18 05/03/18 06:59 06:59 06:59 Intake Total 601 Output Total 300 Balance 301 Result Diagrams: 05/01/18 14:59 05/02/18 09:12 Phys Exam - Physical Examination Constitutional: NAD HEENT: PERRLA, moist MMs Neck: full ROM Respiratory: no wheezing, clear to auscultation bilateral Cardiovascular: RRR, no significant murmur chest not tender to palpation Neurological: non-focal, moves all 4 limbs Psychiatric: normal affect, A&O x 3 Dx/Plan (1) Atypical chest pain Code(s): R07.89 - OTHER CHEST PAIN Status: Acute (2) Alcoholic hepatitis Code(s): K70.10 - ALCOHOLIC HEPATITIS WITHOUT ASCITES Status: Acute (3) ETOH abuse Code(s): F10.10 - ALCOHOL ABUSE, UNCOMPLICATED Status: Chronic (4) HTN (hypertension) Code(s): I10 - ESSENTIAL (PRIMARY) HYPERTENSION Status: Chronic (5) MDD (major depressive disorder) Code(s): F32.9 - MAJOR DEPRESSIVE DISORDER, SINGLE EPISODE, UNSPECIFIED Status : Chronic (6) Nicotine addiction Code(s): F17.200 - NICOTINE DEPENDENCE, UNSPECIFIED, UNCOMPLICATED Status: Chronic - Plan Plan: Atypical chest pain -troponin negative x 2 -inital EKG T wave inversions, repeat was within normal limits -much improved with toradol -TTE and stress test to r/o cardiac cause and eval for pericarditis -ASA -A1c, TSH, FLP to risk stratify Hypokalemia -add KCl to medications -gave IV Mg and K+ ETOH abuse -start ASE protocol -not currently symptomatic from withdrawal -vital signs stable -AST elevated at 85 -chart review reveals that this is the lowest it has been in several years -Abd US in June 2016 shows steatohepatitis HTN (hypertension) -continue home amlodipine and HCTZ -normotensive at time of admission History of depression -per centricity review, has not refilled celexa recently Dispo: If NST negative, can d/c home today with ibuprofen to help with pain Addendum - Attending - Attending Attestation Date/Time: 05/02/18 3987 I personally evaluated the patient and discussed the management with Dr. Nunez I agree with the History, Examination, Assessment and Plan documented above with any addition or exceptions noted below. Troponins negative no further Chest Pain. Pending nl stress ok dismiss home today.
[2018-05-02] MEDS: Potassium Chloride 20 MEQ TAB PO SCH (08:25)
[2018-05-02] MEDS: Amlodipine 10 MG TAB PO SCH (08:25)
[2018-05-02] MEDS: Famotidine 20 MG TAB PO SCH ×2 (08:26→20:53)
[2018-05-02] MEDS: Aspirin 81 mg Enteric Coated Tablet PO SCH (08:26)
[2018-05-02] MEDS: Folic Acid 1 MG TAB PO SCH (08:28)
[2018-05-02] MEDS: Hydrochlorothiazide 25 MG TAB PO SCH (08:28)
[2018-05-02] MEDS: Multivitamin W/ Minerals 1 TAB PO SCH (08:28)
[2018-05-02 10:04] LABS: Potassium 2.9 mmol/L (3.5-5.1)
[2018-05-02] MEDS ORDERED: ADENOSINE 60 MG/20 ML VIAL ONE (10:15)
[2018-05-02] MEDS ORDERED: Potassium Chloride 20 MEQ in Sodium Chloride 0.9% 250 ML 250 ML IV SCH (10:15)
[2018-05-02 10:31] LABS: Cardiac Risk 3.8 (Less than 4.5)
[2018-05-02 18:03] LABS: Hemoglobin A1c 4.9 % (4.0-6.0)
[2018-05-02 18:13] LABS: Anion Gap 12 mmol/L (10-20); BUN (Urea Nitrogen) 7 mg/dL (7.0-18.7); Calc. Creatinine Clearance 76 mL/min (70-130); Calcium 10.2 mg/dL (7.8-10.44); Carbon Dioxide 29 mmol/L (22-29); Chloride 100 mmol/L (98-107); Estimated GFR-MDRD Greater than 90; Glucose 110 mg/dL (70-105); Potassium 3.3 mmol/L (3.5-5.1); Sodium 138 mmol/L (136-145)
--- NOTE | 2018-05-02 19:37 | NM ---
CARDIAC SPECT: HISTORY: A 43-year-old female with chest pain and hypertension. TECHNIQUE: A myocardial perfusion scan was performed using the single isotope one-day protocol with technetium 9 9m sestamibi, and 11 millicuries was injected intravenously for the rest exam, followed by 27 millicu zeb for the stress study. Pharmacologic stress with adenosine was monitored and interpreted by Dr. La. FINDINGS: Homogeneous tracer distribution is seen in the myocardial segments on stress and rest images without fixed or reversible defects. GATED SPECT LVEF: 64%. WALL MOTION EXAM: Normal. IMPRESSION: Normal myocardial perfusion scan. POS: [facility]
[2018-05-03] MEDS: Ketorolac Tromethamine 30 MG/ML VIAL IVP PRN
[2018-05-03] MEDS: Nitroglycerin 2% Ointment 1 INCH/1 GM Packet TOP SCH ×2 (00:05→08:50)
[2018-05-03] MEDS ORDERED: Diazepam 5 MG TAB PO PRN (04:00)
[2018-05-03 05:45] LABS: Anion Gap 14 mmol/L (10-20); BUN (Urea Nitrogen) 12 mg/dL (7.0-18.7); Calc. Creatinine Clearance 88 mL/min (70-130); Calcium 9.5 mg/dL (7.8-10.44); Carbon Dioxide 26 mmol/L (22-29); Chloride 102 mmol/L (98-107); Estimated GFR-MDRD Greater than 90; Glucose 88 mg/dL (70-105); Potassium 3.6 mmol/L (3.5-5.1); Sodium 138 mmol/L (136-145)
--- NOTE | 2018-05-03 06:47 | PDOC.FM ---
- Subjective Subjective: Denies chest pain overnight and this morning. States original chest pain was sharp and right sided. Slept well and feels well this morning. - Objective MAR Reviewed: Yes Vital Signs & Weight: Vital Signs (12 hours) Temp Pulse Resp BP BP Pulse Ox 05/03/18 04:30 116/73 05/03/18 00:00 114/68 05/02/18 23:49 97.9 F 82 12 114/68 97 05/02/18 20:00 108/76 05/02/18 19:22 98.1 F 83 16 108/76 98 Weight Weight 48.761 kg I&O: 05/01/18 05/02/18 05/03/18 06:59 06:59 06:59 Intake Total 601 951 Output Total 300 900 Balance 301 51 Result Diagrams: 05/01/18 14:59 05/03/18 04:25 Phys Exam - Physical Examination Constitutional: NAD Respiratory: no wheezing, no rales, clear to auscultation bilateral Cardiovascular: RRR, no significant murmur chest pain not reproducible Gastrointestinal: soft, non-tender, no distention Musculoskeletal: no edema, pulses present Neurological: non-focal, normal sensation Psychiatric: normal affect, A&O x 3 Skin: no rash, cap refill <2 seconds Dx/Plan (1) Pericarditis Code(s): I31.9 - DISEASE OF PERICARDIUM, UNSPECIFIED Status: Suspected Qualifiers: Pericarditis type: idiopathic Chronicity: acute Qualified Code(s): I30.0 - Acute nonspecific idiopathic pericarditis (2) Atypical chest pain Code(s): R07.89 - OTHER CHEST PAIN Status: Acute (3) ETOH abuse Code(s): F10.10 - ALCOHOL ABUSE, UNCOMPLICATED Status: Chronic (4) HTN (hypertension) Code(s): I10 - ESSENTIAL (PRIMARY) HYPERTENSION Status: Chronic (5) MDD (major depressive disorder) Code(s): F32.9 - MAJOR DEPRESSIVE DISORDER, SINGLE EPISODE, UNSPECIFIED Status : Chronic - Plan Plan: Plan: Atypical chest pain -troponin negative X 3 -inital EKG T wave inversions, repeat was within normal limits -much improved with toradol; suspect pericarditis -TTE: EF wnl, mild TR, mild MT, trace MR; and stress test negative -Ascvd risk 1% Hypokalemia, resolved -40mg PO KCL WM daily ETOH abuse -ASE protocol -not currently symptomatic from withdrawal -vital signs stable -AST elevated at 85 -chart review reveals that this is the lowest it has been in several years -Abd in June 2016 shows steatohepatitis HTN (hypertension) -continue home amlodipine and HCTZ -normotensive at time of admission History of depression -per centricity review, has not refilled celexa recently Addendum - Attending - Attending Attestation Date/Time: 05/03/18 1216 I personally evaluated the patient and discussed the management with Dr. Uriah Lopez I agree with the History, Examination, Assessment and Plan documented above with any addition or exceptions noted below. 43 yo female with history of Anxiety/depression, GERD, HTN, and alcohol abuse admitted for atypical chest pain. HD#1 Patient doing well. No chest pain since presentation. Stress testing negative. ECHO WNL. Potassium level WNL this AM. VS reviewed. Labs reviewed. Imaging reviewed. NAD. MMM. No murmurs. CTAB. No W/C/R NT/ND. BS present. FROM. No c/c/e. 1. Atypical chest pain: Noncardiac. Stress negative. Trops negative. ECHO WNL. Unsure etiology. Possibly related to GI due to history of alcohol use and GERD. Will begin treatment and follow up outpatient. 2. Alcohol use: Risk for gastritis. Recommend out patient follow up. Needs multivitamin due to malnutrition. Cessation encouraged. 3. HTN: Controlled. 4. GERD: PPI. Follow up outpatient. Ok to d/c to home. Follow up with PCP in 1 wk. [place]
[2018-05-03 07:51] VITALS: BP 129/84; TEMP 98.7
--- NOTE | 2018-05-03 08:36 | STRESS ---
Acquisition Time: 2018-05-02 16:00:29 Total Exercise Time: 00:04:00 Test Indications: CHEST PAIN Medications: Protocol: ADENOSINE Max HR: 110 BPM 62% of Pred: 175 BPM Max BP: 140/092 mmHG Max Work Load: 1.0 METS RESTING ECG: NORMAL SINUS RHYTHM AT 79 BPM SYMPTOMS: CHEST PAIN APPROPRIATE BP RESPONSE FOR ADENOSINE ECTOPY: NONE ECG STRESS: NO SIGNIFICANT CHANGES INTERPRETATION: AWAIT NUCLEAR IMAGES FOR DEFINITIVE DIAGNOSIS Confirmed by SRINIVASAN PITT ([id number]) on 05/03/2018 8:35:59 AM Referred By: Confirmed By:SRINIVASAN PITT
[2018-05-03] MEDS: Potassium Chloride 20 MEQ TAB PO SCH (08:50)
[2018-05-03] MEDS: Aspirin 81 mg Enteric Coated Tablet PO SCH (08:50)
[2018-05-03] MEDS: Famotidine 20 MG TAB PO SCH (08:51)
[2018-05-03] MEDS: Amlodipine 10 MG TAB PO SCH (08:51)
[2018-05-03] MEDS: Folic Acid 1 MG TAB PO SCH (08:51)
[2018-05-03] MEDS: Hydrochlorothiazide 25 MG TAB PO SCH (08:51)
[2018-05-03] MEDS: Multivitamin W/ Minerals 1 TAB PO SCH (08:51)
[2018-05-03] MEDS ORDERED: Magnesium Oxide 400 MG TAB PO SCH (09:00)
== END 2018-05-03 11:33 | disposition home or self-care (01) ==
LOC: ERS 14:42 → 2SW 17:00
PROVIDERS: ADMIT Family Medicine; ATTEND Family Medicine
DX: R07.89 Other chest pain (principal); K70.10 Alcoholic hepatitis without ascites; F10.10 Alcohol abuse, uncomplicated; F32.9 Major depressive disorder, single episode, unspecified; F17.210 Nicotine dependence, cigarettes, uncomplicated; K21.9 Gastro-esophageal reflux disease without esophagitis; I10 Essential (primary) hypertension; E87.6 Hypokalemia; Z90.710 Acquired absence of both cervix and uterus; Z79.82 Long term (current) use of aspirin; Z79.899 Other long term (current) drug therapy
CPT/HCPCS: 36415; 71275; 78452; 80048; 80053; 80061; 83036; 83690; 83735; 83880; 84100; 84443; 84484; 85025; 90471; 90686; 93005; 93017; 93306; 94760; 96365; 96366; 96374; 96375; 96376; A9500; G0008; G0378; J0153; J1885; J3411; J3475; J3480; J7050; Q9966

== ENCOUNTER 2019-04-07 13:31 | Emergency (ER) | payer OTHER | END 2019-04-07 14:27 | disposition home or self-care (01) | LOC: ERS 13:31 | DX: H60.02 Abscess of left external ear (principal); I10 Essential (primary) hypertension; F32.9 Major depressive disorder, single episode, unspecified; F17.210 Nicotine dependence, cigarettes, uncomplicated | CPT/HCPCS: 69000 ==

== ENCOUNTER 2019-05-29 14:42 | Emergency (ER) | payer OTHER ==
[~2019-05-29 14:42] MED LIST changes: -ISOVUE-370 76%-LOCM 1 ML ONE; +Iopamidol 370 76% 100 ML VIAL ONE
[2019-05-29] MEDS ORDERED: Ondansetron PF 4 MG/2 ML Vial ONE (15:11)
[2019-05-29] MEDS ORDERED: Morphine 4 MG/ML VIAL ONE (15:11)
[2019-05-29 15:22] LABS: Bilirubin Negative (Negative); Blood, Urine Negative (Negative); Clarity Clear (Clear); Glucose, Urine (Dipstick) Negative (Negative); Leukocyte Negative (Negative); Nitrite Negative (Negative); Protein, Urine (Dipstick) Negative (Neg-Trace); Urobilinogen 0.2 mg/dL (Less than 2)
[2019-05-29 15:28] LABS: Hemoglobin 13.9 g/dL (12.0-16.0); Mean Corpuscular HGB CONC 33.7 g/dL (32.0-36.0); Mean Corpuscular Hemoglobin 35.2 pg (27.0-31.0); Mean Platelet Volume 8.2 fL (7.4-10.4); Platelet Count 314 thou/uL (130-400); RBC Distribution Width 11.7 % (11.5-14.5); Red Blood Cell (RBC) Count 3.96 mill/uL (4.20-5.40); White Blood Cell (WBC) Count 8.2 thou/uL (4.8-10.8)
[2019-05-29 15:29] LABS: #Basophils 0.1 thou/uL (0.0-0.2); #Eosinphils 0.1 thou/uL (0.0-0.7); #Lymphocytes 2.8 thou/uL (1.20-3.40); #Monocytes 0.8 thou/uL (0.11-0.59); #Neutrophils 4.4 thou/uL (1.40-6.50); %Basophils 0.8 % (0.0-1.0); %Eosinophils 1.4 % (0.0-10.0); %Lymphocytes 34.4 % (21.0-51.0); %Monocytes 9.7 % (0.0-10.0); %Neutrophils 53.7 % (42.0-75.0)
[2019-05-29 15:49] LABS: MDiff Complete? YES; Macrocytosis SLIGHT = 6-15 cells (100X) (0-5/hpf); Platelet Morphology Comment Appears Adequate; Polychromasia SLIGHT = 2-3 cells (100X) (0-2/hpf); Target Cells SLIGHT = 2-5 cells (100X) (0-1/hpf)
[2019-05-29 15:52] LABS: ALT (SGPT) 83 U/L (8-55); AST (SGOT) 158 U/L (5-34); Albumin 4.7 g/dL (3.5-5.0); Alkaline Phosphatase 92 U/L (40-110); Anion Gap 20 mmol/L (10-20); BUN (Urea Nitrogen) 4 mg/dL (7.0-18.7); Bilirubin, Total 0.4 mg/dL (0.2-1.2); Calc. Creatinine Clearance 0 mL/min (70-130); Calcium 10.2 mg/dL (7.8-10.44); Carbon Dioxide 23 mmol/L (22-29); Chloride 101 mmol/L (98-107); Estimated GFR-MDRD Greater than 90; Globulin 4.9 g/dL (2.4-3.5); Glucose 77 mg/dL (70-105); Lipase 29 U/L (8-78); Potassium 3.9 mmol/L (3.5-5.1); Protein, Total 9.6 g/dL (6.0-8.3); Sodium 140 mmol/L (136-145)
--- NOTE | 2019-05-29 15:58 | CT ---
CT abdomen and pelvis with IV contrast HISTORY: Abdomen pain. COMPARISON: 03/26/2017. FINDINGS: The lung bases are clear. The liver, spleen, kidneys, adrenal glands, and pancreas have a n ormal CT appearance. There is calcification throughout the arterial structures. No enlarged lymph nodes or free fluid. Urinary bladder is unremarkable. No evidence of bowel obstruction or inflammatio n. Appendix not well delineated. IMPRESSION: No acute abnormalities are demonstrated to explain abdominal pain. Atherosclerosis.
== END 2019-05-29 18:00 | disposition home or self-care (01) ==
LOC: ERS 14:42
DX: R10.84 Generalized abdominal pain (principal); I10 Essential (primary) hypertension; F32.9 Major depressive disorder, single episode, unspecified; F17.210 Nicotine dependence, cigarettes, uncomplicated
CPT/HCPCS: 36415; 74177; 80053; 81003; 83605; 83690; 84484; 85025; 96361; 96374; 96375; J2270; J2405; Q9967

== ENCOUNTER 2019-06-18 00:07 | Emergency (ER) | payer OTHER | END 2019-06-18 04:07 | disposition home or self-care (01) | LOC: ERS 00:07 | DX: R10.84 Generalized abdominal pain (principal); I10 Essential (primary) hypertension; F31.9 Bipolar disorder, unspecified; F17.210 Nicotine dependence, cigarettes, uncomplicated | CPT/HCPCS: 99284 ==

== ENCOUNTER 2019-08-15 00:20 | Emergency (ER) | payer OTHER ==
[2019-08-15 01:20] LABS: ALT (SGPT) 117 U/L (8-55); AST (SGOT) 205 U/L (5-34); Acetaminophen Less than 6.0 mcg/mL (10.0-30.0); Albumin 4.6 g/dL (3.5-5.0); Alcohol 347 mg/dL (Less than 10); Alkaline Phosphatase 95 U/L (40-110); Anion Gap 19 mmol/L (10-20); BUN (Urea Nitrogen) 6 mg/dL (7.0-18.7); Bilirubin, Total 0.2 mg/dL (0.2-1.2); Calc. Creatinine Clearance 0 mL/min (70-130); Calcium 9.9 mg/dL (7.8-10.44); Carbon Dioxide 22 mmol/L (22-29); Chloride 105 mmol/L (98-107); Estimated GFR-MDRD Greater than 90; Globulin 4.8 g/dL (2.4-3.5); Glucose 88 mg/dL (70-105); Potassium 3.6 mmol/L (3.5-5.1); Protein, Total 9.4 g/dL (6.0-8.3); Salicylate Less than 8.0 mg/dL (15.0-30.0); Sodium 142 mmol/L (136-145)
[2019-08-15 01:23] LABS: Band 1 % (5-11); Eosinophils 1 % (0-10); Hemoglobin 13.6 g/dL (12.0-16.0); Lymphocytes 56 % (21-51); MDiff Complete? YES; Macrocytosis SLIGHT = 6-15 cells (100X) (0-5/hpf); Mean Corpuscular HGB CONC 34.6 g/dL (32.0-36.0); Mean Corpuscular Hemoglobin 36.4 pg (27.0-31.0); Mean Platelet Volume 8.5 fL (7.4-10.4); Monocytes 1 % (0-10); Neutrophil 41 % (42-75); Platelet Count 290 thou/uL (130-400); Platelet Morphology Comment Appears Adequate; RBC Distribution Width 11.2 % (11.5-14.5); Red Blood Cell (RBC) Count 3.73 mill/uL (4.20-5.40); White Blood Cell (WBC) Count 6.1 thou/uL (4.8-10.8)
[2019-08-15 01:33] LABS: BHCG - Serum Negative (NEGATIVE); Pregs Control Background? CLEAR/WHITE (CLR/WHITE); Pregs Control Bar Appear? YES (CONTROL BAR)
[2019-08-15 01:48] LABS: Thyroid Stimulating Hormone 0.7776 uIU/mL (0.35-4.94)
[2019-08-15 01:55] LABS: Bilirubin Negative (Negative); Blood, Urine Negative (Negative); Clarity Clear (Clear); Glucose, Urine (Dipstick) Normal (Negative); Leukocyte Negative Leu/uL (Negative); Nitrite Negative (Negative); Protein, Urine (Dipstick) Negative (Neg-Trace); Urobilinogen Normal mg/dL (Less than 2)
[2019-08-15 02:06] LABS: Amphetamine Not Detected (NotDetected); Barbiturates Screen Not Detected (NotDetected); Benzodiazepine Screen Not Detected (NotDetected); Cocaine Metabolite Screen Not Detected (NotDetected); Medtox Control Line Valid? VALID (VALID); Medtox Reader # READER 1; Methadone Not Detected (NotDetected); Methamphetamine Not Detected (NotDetected); Opiate Screen Not Detected (NotDetected); Oxycodone Screen Not Detected (NotDetected); Phencyclidine (PCP) Not Detected (NotDetected); THC/Cannabinoid Screen Not Detected (NotDetected); Tricyclic Screen Not Detected (NotDetected)
== END 2019-08-15 02:34 | disposition home or self-care (01) ==
LOC: ERS 00:20
DX: F10.129 Alcohol abuse with intoxication, unspecified (principal); I10 Essential (primary) hypertension; F17.210 Nicotine dependence, cigarettes, uncomplicated; F31.9 Bipolar disorder, unspecified; Y90.8 Blood alcohol level of 240 mg/100 ml or more; Z79.899 Other long term (current) drug therapy
CPT/HCPCS: 36415; 80053; 80306; 80307; 81003; 84443; 84703; 85025; 99284

== ENCOUNTER 2021-03-28 19:07 | Inpatient (IN) | payer OTHER ==
[~2021-03-28 19:07] MED LIST changes: -Iopamidol 370 76% 100 ML VIAL ONE; +Iopamidol-370 76% 500 ML 1 ML ONE
[2021-03-28 19:38] LABS: Hemoglobin 6.7 g/dL (12.0-16.0); Mean Corpuscular HGB CONC 30.9 g/dL (32.0-36.0); Mean Corpuscular Hemoglobin 36.8 pg (27.0-31.0); Mean Platelet Volume 7.5 fL (7.4-10.4); Platelet Count 390 thou/uL (130-400); RBC Distribution Width 22.4 % (11.5-14.5); Red Blood Cell (RBC) Count 1.83 mill/uL (4.20-5.40); White Blood Cell (WBC) Count 25.8 thou/uL (4.8-10.8)
[2021-03-28 19:53] LABS: ALT (SGPT) 16 U/L (8-55); AST (SGOT) 176 U/L (5-34); Albumin 2.2 g/dL (3.5-5.0); Alkaline Phosphatase 162 U/L (40-110); Anion Gap 20 mmol/L (10-20); BUN (Urea Nitrogen) 30 mg/dL (7.0-18.7); Bilirubin, Total 14.1 mg/dL (0.2-1.2); Calc. Creatinine Clearance 0 mL/min (70-130); Calcium 8.1 mg/dL (7.8-10.44); Carbon Dioxide 22 mmol/L (22-29); Chloride 95 mmol/L (98-107); Globulin 4.9 g/dL (2.4-3.5); Glucose 121 mg/dL (70-105); Lipase 54 U/L (8-78); Potassium 3.1 mmol/L (3.5-5.1); Protein, Total 7.1 g/dL (6.0-8.3); Sodium 134 mmol/L (136-145)
[2021-03-28 19:55] LABS: Anisocytosis SLIGHT = 6-15 cells (100X) (0-5/hpf); Band 12 % (5-11); Hypochromia SLIGHT = 6-15 cells (100X) (0-5/hpf); Lymphocytes 5 % (21-51); MDiff Complete? YES; Macrocytosis MODERATE=16-30 cells (100X) (0-5/hpf); Monocytes 7 % (0-10); Neutrophil 76 % (42-75); Platelet Morphology Comment Appears Adequate; Polychromasia SLIGHT = 2-3 cells (100X) (0-2/hpf); Target Cells MODERATE= 6-15 cells (100X) (0-1/hpf)
[2021-03-28] MEDS ORDERED: Piperacillin/Tazobactam 3.375 GM VIAL ONE (20:03)
[2021-03-28] MEDS ORDERED: Vancomycin 1 GM/200 ML BAG ONE (20:59)
[2021-03-28 21:56] LABS: Bilirubin 3+ (Negative); Blood, Urine Negative (Negative); Clarity Clear (Clear); Glucose, Urine (Dipstick) Normal (Negative); Ketone, Urine Negative (Negative); Leukocyte Negative Leu/uL (Negative); Nitrite Negative (Negative); Protein, Urine (Dipstick) 10 mg/dL (Neg-Trace); Specific Gravity, Urine 1.045 (1.002-1.036)
[2021-03-28 23:11] LABS: Lactic Acid 4.8 mmol/L (0.5-2.2)
[2021-03-28] MEDS ORDERED: Lactated Ringer's 1,000 ML IV SCH (23:15)
[2021-03-28] MEDS ORDERED: Lorazepam 2 MG/ML VIAL SLOW IVP SCH (23:15)
[2021-03-28] MEDS ORDERED: Potassium Chloride 20 MEQ TAB ONE (23:17)
[2021-03-28] MEDS ORDERED: Folic Acid 1 MG TAB PO SCH (23:30)
[2021-03-28] MEDS ORDERED: Thiamine 100 MG TAB PO SCH (23:30)
[2021-03-28 23:39] LABS: SARS-CoV-2 NAA Rapid Test Not Detected (NotDetected)
[2021-03-28 23:42] LABS: Amphetamine Not Detected (NotDetected); Barbiturates Screen Not Detected (NotDetected); Benzodiazepine Screen Not Detected (NotDetected); Cocaine Metabolite Screen Not Detected (NotDetected); Methadone Not Detected (NotDetected); Methamphetamine Not Detected (NotDetected); Opiate Screen Not Detected (NotDetected); Oxycodone Screen Not Detected (NotDetected); Phencyclidine (PCP) Not Detected (NotDetected); THC/Cannabinoid Screen Not Detected (NotDetected); Tricyclic Screen Not Detected (NotDetected)
[2021-03-29] MEDS: Nicotine 21 MG PATCH TD SCH ×3 (01:20→22:28)
[2021-03-29] MEDS ORDERED: Piperacillin/Tazobactam 3.375 GM in Sodium Chloride 0.9% 100 ML IVPB SCH (03:00)
[2021-03-29] MEDS: Piperacillin/Tazobactam 3.375 GM in Sodium Chloride 0.9% 100 ML IVPB SCH ×3 (05:08→22:27)
[2021-03-29] MEDS ORDERED: Vancomycin 1 GM in Premix Bag 1 BAG IVPB SCH (08:00)
[2021-03-29] MEDS ORDERED: FLU VACC QS2021-22(6MOS UP)/PF 60 MCG/0.5 ML SYRINGE IM ONE (09:00)
[2021-03-29 09:34] LABS: Reticulocyte Count 5.7 % (0.5-1.5)
[2021-03-29 09:51] LABS: INR-International Normal Ratio 1.6; Prothrombin Time 19.4 sec (12.0-14.7)
[2021-03-29 09:52] LABS: PTT 42.5 sec (22.9-36.1)
[2021-03-29 09:55] LABS: Acetaminophen Less than 6.0 mcg/mL (10.0-30.0); Alcohol Less than 10 mg/dL (Less than 10); Bilirubin, Total 13.9 mg/dL (0.2-1.2); CRP (Inflammatory) 2.66 mg/dL (= or < 0.5); Gamma GT (GGT) 141 U/L (9-36); Hemoglobin 6.7 g/dL (12.0-16.0); Iron 92 ug/dL (50-170); Iron Binding Capacity, Total 79 mcg/dL (265-497); Mean Corpuscular HGB CONC 30.8 g/dL (32.0-36.0); Mean Platelet Volume 7.6 fL (7.4-10.4); Platelet Count 309 thou/uL (130-400); RBC Distribution Width 25.4 % (11.5-14.5); Red Blood Cell (RBC) Count 1.96 mill/uL (4.20-5.40); Salicylate Less than 8.0 mg/dL (15.0-30.0); White Blood Cell (WBC) Count 24.9 thou/uL (4.8-10.8)
[2021-03-29 09:56] LABS: ALT (SGPT) 14 U/L (8-55); AST (SGOT) 144 U/L (5-34); Albumin 1.8 g/dL (3.5-5.0); Alkaline Phosphatase 135 U/L (40-110); Anion Gap 14 mmol/L (10-20); BUN (Urea Nitrogen) 20 mg/dL (7.0-18.7); Bilirubin, Total 13.7 mg/dL (0.2-1.2); Calc. Creatinine Clearance 72 mL/min (70-130); Calcium 7.2 mg/dL (7.8-10.44); Carbon Dioxide 20 mmol/L (22-29); Chloride 106 mmol/L (98-107); Globulin 4.2 g/dL (2.4-3.5); Glucose 108 mg/dL (70-105); Sodium 137 mmol/L (136-145)
[2021-03-29 10:08] LABS: Band 31 % (5-11); Hypochromia SLIGHT = 6-15 cells (100X) (0-5/hpf); Lymphocytes 4 % (21-51); MDiff Complete? YES; Macrocytosis MODERATE=16-30 cells (100X) (0-5/hpf); Metamyelocyte 3 % (0-0); Monocytes 8 % (0-10); Neutrophil 54 % (42-75); Platelet Morphology Comment Appears Adequate; Polychromasia SLIGHT = 2-3 cells (100X) (0-2/hpf); Target Cells SLIGHT = 2-5 cells (100X) (0-1/hpf)
[2021-03-29 10:13] LABS: Toxic Granulation SLIGHT
[2021-03-29] MEDS: Folic Acid 1 MG TAB PO SCH (10:16)
[2021-03-29] MEDS: Thiamine 100 MG TAB PO SCH (10:16)
[2021-03-29 10:19] LABS: Potassium 2.9 mmol/L (3.5-5.1)
[2021-03-29 10:24] LABS: Vitamin B12 Greater than 2000 pg/mL (211-911)
[2021-03-29 10:30] LABS: HBCM Index 0.09 S/CO (0-0.79); HBSAg Index 0.34 S/CO (0-0.99); HIV (1/2) Antibody/Antigen Non-Reactive (NonReactive); HIV 1/2 INDEX 0.13 S/CO (<1.00); Hep B Surf Ag Non-Reactive S/CO (NonReactive); Hepatitis B Core IgM Abs Non-Reactive (NonReactive)
[2021-03-29 10:48] LABS: Bilirubin, Direct Greater than 10.0 mg/dL (0.1-0.3)
[2021-03-29] MEDS ORDERED: Potassium Chloride 20 MEQ TAB PO SCH (11:00)
[2021-03-29 11:55] LABS: Lactic Acid 1.7 mmol/L (0.5-2.2)
[2021-03-29 12:00] LABS: Hep A IgM AB Reactive (NonReactive); Hep A IgM S/CO 1.21 S/CO (0-0.79)
[2021-03-29] MEDS: Potassium Chloride 20 MEQ in Premix Bag 1 BAG IVPB SCH ×2 (12:29→14:38)
[2021-03-29 13:34] LABS: Syphilis Antibody Index 1.73 S/CO (<1.00 Non-Reactive)
[2021-03-29] MEDS: Sodium Chloride 0.9% 1,000 ML IV SCH ×2 (14:38→18:41)
[2021-03-29 16:00] LABS: Syphilis Antibody INDETERMINATE (Nonreactive)
[2021-03-29 17:51] LABS: Hemoglobin 8.8 g/dL (12.0-16.0); Platelet Count 302 thou/uL (130-400)
[2021-03-29 18:36] LABS: ALT (SGPT) 15 U/L (8-55); AST (SGOT) 151 U/L (5-34); Albumin 1.8 g/dL (3.5-5.0); Alkaline Phosphatase 147 U/L (40-110); Anion Gap 12 mmol/L (10-20); BUN (Urea Nitrogen) 16 mg/dL (7.0-18.7); Bilirubin, Total 14.3 mg/dL (0.2-1.2); Calc. Creatinine Clearance 90 mL/min (70-130); Calcium 7.4 mg/dL (7.8-10.44); Carbon Dioxide 20 mmol/L (22-29); Chloride 110 mmol/L (98-107); Globulin 4.4 g/dL (2.4-3.5); Glucose 75 mg/dL (70-105); Potassium 3.9 mmol/L (3.5-5.1); Protein, Total 6.2 g/dL (6.0-8.3); Sodium 138 mmol/L (136-145)
[2021-03-29] MEDS: Vancomycin HCl 750 MG in Sodium Chloride 0.9% 250 ML 250 ML IVPB SCH (20:48)
[2021-03-30] MEDS: Piperacillin/Tazobactam 3.375 GM in Sodium Chloride 0.9% 100 ML IVPB SCH ×3 (05:55→20:29)
[2021-03-30] MEDS: Sodium Chloride 0.9% 1,000 ML IV SCH ×3 (05:56→21:00)
[2021-03-30 06:59] LABS: Hemoglobin 9.4 g/dL (12.0-16.0); Mean Corpuscular Hemoglobin 34.9 pg (27.0-31.0); Mean Platelet Volume 7.7 fL (7.4-10.4); Platelet Count 276 thou/uL (130-400); RBC Distribution Width 26.8 % (11.5-14.5); Red Blood Cell (RBC) Count 2.69 mill/uL (4.20-5.40); White Blood Cell (WBC) Count 20.7 thou/uL (4.8-10.8)
[2021-03-30 07:20] LABS: #Basophils 0.1 thou/uL (0.0-0.2); #Eosinphils 0.2 thou/uL (0.0-0.7); #Lymphocytes 1.8 thou/uL (1.20-3.40); #Monocytes 1.6 thou/uL (0.11-0.59); %Basophils 0.4 % (0.0-1.0); %Lymphocytes 8.7 % (21.0-51.0); %Monocytes 7.6 % (0.0-10.0); %Neutrophils 82.2 % (42.0-75.0); Anisocytosis MODERATE=16-30 cells (100X) (0-5/hpf); Hypochromia SLIGHT = 6-15 cells (100X) (0-5/hpf); MDiff Complete? YES; Macrocytosis MODERATE=16-30 cells (100X) (0-5/hpf); Ovalocytes SLIGHT = 2-5 cells (100X) (0-1/hpf); Platelet Morphology Comment Appears Adequate; Polychromasia SLIGHT = 2-3 cells (100X) (0-2/hpf); Schistocytes SLIGHT = 2-5 cells (100X) (0-1/hpf); Target Cells SLIGHT = 2-5 cells (100X) (0-1/hpf); Tear Drops SLIGHT = 2-5 cells (100X) (0-1/hpf)
[2021-03-30 07:28] LABS: ALT (SGPT) 16 U/L (8-55); AST (SGOT) 164 U/L (5-34); Albumin 1.6 g/dL (3.5-5.0); Alkaline Phosphatase 153 U/L (40-110); Anion Gap 15 mmol/L (10-20); BUN (Urea Nitrogen) 12 mg/dL (7.0-18.7); Bilirubin, Total 14.3 mg/dL (0.2-1.2); Calc. Creatinine Clearance 84 mL/min (70-130); Calcium 7.2 mg/dL (7.8-10.44); Carbon Dioxide 12 mmol/L (22-29); Chloride 113 mmol/L (98-107); Globulin 4.6 g/dL (2.4-3.5); Glucose 62 mg/dL (70-105); Protein, Total 6.2 g/dL (6.0-8.3); Sodium 136 mmol/L (136-145)
[2021-03-30] MEDS: Folic Acid 1 MG TAB PO SCH (09:03)
[2021-03-30] MEDS: Thiamine 100 MG TAB PO SCH (09:03)
[2021-03-30] MEDS: Nicotine 21 MG PATCH TD SCH (20:29)
[2021-03-30] MEDS: Vancomycin HCl 750 MG in Sodium Chloride 0.9% 250 ML 250 ML IVPB SCH (21:00)
[2021-03-30 21:04] LABS: Vancomycin, Trough 7.1 ug/mL
[2021-03-30 21:10] LABS: INR-International Normal Ratio 1.6; PTT 44.3 sec (22.9-36.1); Prothrombin Time 19.7 sec (12.0-14.7)
[2021-03-31] MEDS: Piperacillin/Tazobactam 3.375 GM in Sodium Chloride 0.9% 100 ML IVPB SCH ×2 (03:45→12:24)
[2021-03-31 07:43] LABS: ALT (SGPT) 17 U/L (8-55); AST (SGOT) 156 U/L (5-34); Albumin 1.8 g/dL (3.5-5.0); Alkaline Phosphatase 151 U/L (40-110); Anion Gap 11 mmol/L (10-20); BUN (Urea Nitrogen) 8 mg/dL (7.0-18.7); Bilirubin, Total 13.9 mg/dL (0.2-1.2); Calc. Creatinine Clearance 100 mL/min (70-130); Calcium 7.1 mg/dL (7.8-10.44); Carbon Dioxide 18 mmol/L (22-29); Chloride 110 mmol/L (98-107); Globulin 4.8 g/dL (2.4-3.5); Glucose 90 mg/dL (70-105); Protein, Total 6.6 g/dL (6.0-8.3); Sodium 136 mmol/L (136-145)
[2021-03-31 07:44] LABS: Bilirubin, Total 13.3 mg/dL (0.2-1.2)
[2021-03-31 07:45] LABS: INR-International Normal Ratio 1.7; PTT 47.1 sec (22.9-36.1); Prothrombin Time 19.9 sec (12.0-14.7)
[2021-03-31] MEDS: Folic Acid 1 MG TAB PO SCH (09:35)
[2021-03-31] MEDS: Thiamine 100 MG TAB PO SCH (09:35)
[2021-03-31] MEDS: Vancomycin HCl 750 MG in Sodium Chloride 0.9% 250 ML 250 ML IVPB SCH ×2 (09:46→22:51)
[2021-03-31] MEDS ORDERED: Potassium Chloride 20 MEQ in Premix Bag 1 BAG IVPB SCH (10:00)
[2021-03-31 10:38] LABS: Anisocytosis MODERATE=16-30 cells (100X) (0-5/hpf); Band 37 % (5-11); Burr Cells SLIGHT = 2-5 cells (100X) (0-1/hpf); Hemoglobin 9.7 g/dL (12.0-16.0); Lymphocytes 3 % (21-51); MDiff Complete? YES; Macrocytosis SLIGHT = 6-15 cells (100X) (0-5/hpf); Mean Corpuscular HGB CONC 33.3 g/dL (32.0-36.0); Mean Corpuscular Hemoglobin 35.3 pg (27.0-31.0); Mean Platelet Volume 7.3 fL (7.4-10.4); Metamyelocyte 1 % (0-0); Monocytes 3 % (0-10); Neutrophil 54 % (42-75); Platelet Count 308 thou/uL (130-400); Platelet Morphology Comment Appears Adequate; Polychromasia SLIGHT = 2-3 cells (100X) (0-2/hpf); RBC Distribution Width 25.6 % (11.5-14.5); Reactive Lymphocytes 2 % (0-10); Red Blood Cell (RBC) Count 2.74 mill/uL (4.20-5.40); Schistocytes SLIGHT = 2-5 cells (100X) (0-1/hpf); Target Cells MODERATE= 6-15 cells (100X) (0-1/hpf)
[2021-03-31 10:53] LABS: Bilirubin, Direct Greater than 10.0 mg/dL (0.1-0.3)
[2021-03-31] MEDS: Potassium Chloride 20 MEQ TAB PO SCH ×2 (12:23→20:27)
[2021-03-31] MEDS ORDERED: Potassium Bicarbonate/Cit Ac 20 MEQ TAB PO SCH (12:45)
[2021-03-31] MEDS ORDERED: Ondansetron ORAL SOLN. 4 MG/5 ML UDCUP PO PRN (13:27)
[2021-03-31] MEDS ORDERED: Furosemide 20 MG/2 ML VIAL SLOW IVP SCH ×2 (15:15→18:30)
[2021-03-31] MEDS ORDERED: Lorazepam 2 MG/ML VIAL SLOW IVP SCH (15:15)
[2021-03-31] MEDS ORDERED: Simethicone Chewable 80 MG TAB PO SCH (15:30)
[2021-03-31] MEDS: Lorazepam 2 MG/ML VIAL SLOW IVP PRN (17:40)
[2021-03-31] MEDS ORDERED: Furosemide 40 MG/4 ML VIAL ONE ×2 (18:14→20:02)
[2021-03-31] MEDS ORDERED: Potassium Chloride 20 MEQ TAB PO SCH (19:00)
[2021-03-31] MEDS ORDERED: Furosemide 100 MG/10 ML VIAL SLOW IVP SCH (19:15)
[2021-03-31] MEDS ORDERED: Furosemide 40 MG/4 ML VIAL SLOW IVP SCH (19:15)
[2021-03-31] MEDS: Potassium Bicarbonate/Cit Ac 20 MEQ TAB PO SCH (20:26)
[2021-03-31 20:54] LABS: Actual Bicarbonate (HCO3a) 14.4 mEq/L (22-28); Base Excess (BEa) -15.4 mEq/L (-2.0 to +3.0); CO2 Tension 51.8 mmHg (35.0-45.0); Calcium, Ionized (arterial) 1.09 mmol/L (1.12-1.30); Carboxyhemoglobin (COHb) 0.6 gm% (0.0-3.0); Hemoglobin (Hb) 10.7 g/dL (12.0-16.0); O2 Tension (PaO2), arterial 96.7 mmHg (80.0-100.0); Potassium - ABG Lab 3.25 mmol/L (3.70-5.30)
[2021-03-31 20:59] LABS: Puncture Site LBR; pH, Arterial 7.06 (7.35-7.45)
[2021-03-31] MEDS ORDERED: Sodium Bicarb 50 MEQ/50 ML Abboject 8.4% SYRINGE IVP SCH (21:30)
[2021-03-31 23:22] LABS: Actual Bicarbonate (HCO3a) 15.9 mEq/L (22-28); Base Excess (BEa) -8.1 mEq/L (-2.0 to +3.0); CO2 Tension 27.4 mmHg (35.0-45.0); Carboxyhemoglobin (COHb) 0.6 gm% (0.0-3.0); Hemoglobin (Hb) 9.2 g/dL (12.0-16.0); Potassium - ABG Lab 2.96 mmol/L (3.70-5.30); pH, Arterial 7.38 (7.35-7.45)
[2021-03-31 23:27] LABS: Puncture Site LBR
[2021-03-31] MEDS: Norepinephrine 8 MG/0.9% NS 250 ML IVPB SCH (23:36)
[2021-03-31] MEDS: Nicotine 21 MG PATCH TD SCH (23:39)
[2021-04-01 00:26] LABS: Lactic Acid 6.6 mmol/L (0.5-2.2)
[2021-04-01] MEDS ORDERED: Albumin 25% 25 GM/100 ML BOT IVPB SCH (00:30)
[2021-04-01] MEDS: Piperacillin/Tazobactam 3.375 GM in Sodium Chloride 0.9% 100 ML IVPB SCH ×4 (00:40→21:15)
[2021-04-01] MEDS: Sodium Chloride 0.9% 1,000 ML IV SCH (01:13)
[2021-04-01] MEDS ORDERED: Lactated Ringer's 1,000 ML IV SCH ×2 (02:45→10:15)
[2021-04-01 05:19] LABS: Lactic Acid 6.6 mmol/L (0.5-2.2)
[2021-04-01 06:20] LABS: Troponin I 4.319 ng/mL (< 0.028)
[2021-04-01 09:03] LABS: Hemoglobin 9.7 g/dL (12.0-16.0); Mean Corpuscular Hemoglobin 34.1 pg (27.0-31.0); Mean Platelet Volume 7.8 fL (7.4-10.4); Platelet Count 340 thou/uL (130-400); RBC Distribution Width 25.7 % (11.5-14.5); Red Blood Cell (RBC) Count 2.84 mill/uL (4.20-5.40); White Blood Cell (WBC) Count 24.8 thou/uL (4.8-10.8)
[2021-04-01 09:07] LABS: Vancomycin, Trough 25.7 ug/mL
[2021-04-01 09:17] LABS: ALT (SGPT) 33 U/L (8-55); AST (SGOT) 247 U/L (5-34); Albumin 2.2 g/dL (3.5-5.0); Alkaline Phosphatase 133 U/L (40-110); Anion Gap 19 mmol/L (10-20); BUN (Urea Nitrogen) 11 mg/dL (7.0-18.7); Bilirubin, Total 13.6 mg/dL (0.2-1.2); Calc. Creatinine Clearance 53 mL/min (70-130); Calcium 7.5 mg/dL (7.8-10.44); Carbon Dioxide 14 mmol/L (22-29); Chloride 112 mmol/L (98-107); Globulin 3.9 g/dL (2.4-3.5); Glucose 100 mg/dL (70-105); Potassium 3.4 mmol/L (3.5-5.1); Protein, Total 6.1 g/dL (6.0-8.3); Sodium 142 mmol/L (136-145)
[2021-04-01 09:18] LABS: Lactic Acid 7.1 mmol/L (0.5-2.2); Troponin I 3.938 ng/mL (< 0.028)
[2021-04-01] MEDS: Vancomycin HCl 750 MG in Sodium Chloride 0.9% 250 ML 250 ML IVPB SCH ×2 (09:28→09:44)
[2021-04-01 09:32] LABS: Band 36 % (5-11); Burr Cells MODERATE= 6-15 cells (100X) (0-1/hpf); Hypochromia SLIGHT = 6-15 cells (100X) (0-5/hpf); Lymphocytes 5 % (21-51); MDiff Complete? YES; Macrocytosis MODERATE=16-30 cells (100X) (0-5/hpf); Monocytes 4 % (0-10); Neutrophil 55 % (42-75); Platelet Morphology Comment Appears Adequate; Polychromasia SLIGHT = 2-3 cells (100X) (0-2/hpf); Toxic Granulation SLIGHT
[2021-04-01] MEDS: Thiamine 100 MG TAB PO SCH (09:43)
[2021-04-01] MEDS: Folic Acid 1 MG TAB PO SCH (09:43)
[2021-04-01 09:57] LABS: Actual Bicarbonate (HCO3a) 12.2 mEq/L (22-28); Base Excess (BEa) -15.2 mEq/L (-2.0 to +3.0); Calcium, Ionized (arterial) 1.01 mmol/L (1.12-1.30); Carboxyhemoglobin (COHb) 0.4 gm% (0.0-3.0); Hemoglobin (Hb) 10.4 g/dL (12.0-16.0); Potassium - ABG Lab 3.12 mmol/L (3.70-5.30)
[2021-04-01 10:02] LABS: O2 Tension (PaO2), arterial 52.7 mmHg (80.0-100.0); Puncture Site RRA; pH, Arterial 7.17 (7.35-7.45)
[2021-04-01] MEDS: Sodium Bicarbonate 150 MEQ in Dextrose 5% in Water 1,000 ML IV SCH ×2 (11:30→19:20)
[2021-04-01] MEDS: Lorazepam 2 MG/ML VIAL SLOW IVP PRN (13:05)
[2021-04-01] MEDS ORDERED: Electrolyte Replacement Protocol 1 EACH IVPB PRN (14:37)
[2021-04-01] MEDS: Potassium Bicarbonate/Cit Ac 20 MEQ TAB PO SCH (19:20)
[2021-04-01] MEDS ORDERED: Famotidine/PF 20 mg/2ml Vial SLOW IVP SCH (21:00)
[2021-04-01] MEDS: Nicotine 21 MG PATCH TD SCH (23:02)
[2021-04-01] MEDS: Albumin 25% 25 GM/100 ML BOT IVPB SCH (23:22)
[2021-04-02] MEDS: Norepinephrine 8 MG/0.9% NS 250 ML IVPB SCH ×2 (00:50→21:13)
[2021-04-02] MEDS: Sodium Bicarbonate 150 MEQ in Dextrose 5% in Water 1,000 ML IV SCH ×3 (02:46→21:13)
[2021-04-02] MEDS: Lorazepam 2 MG/ML VIAL SLOW IVP PRN ×3 (03:04→22:57)
[2021-04-02 04:31] LABS: ALT (SGPT) 58 U/L (8-55); AST (SGOT) 387 U/L (5-34); Albumin 2.1 g/dL (3.5-5.0); Alkaline Phosphatase 87 U/L (40-110); Anion Gap 17 mmol/L (10-20); BUN (Urea Nitrogen) 14 mg/dL (7.0-18.7); Bilirubin, Total 11.2 mg/dL (0.2-1.2); Calc. Creatinine Clearance 39 mL/min (70-130); Calcium 6.5 mg/dL (7.8-10.44); Carbon Dioxide 23 mmol/L (22-29); Chloride 106 mmol/L (98-107); Globulin 2.9 g/dL (2.4-3.5); Glucose 163 mg/dL (70-105); Sodium 144 mmol/L (136-145)
[2021-04-02 04:41] LABS: Potassium 2.3 mmol/L (3.5-5.1)
[2021-04-02] MEDS: Piperacillin/Tazobactam 3.375 GM in Sodium Chloride 0.9% 100 ML IVPB SCH ×3 (04:45→21:24)
[2021-04-02 04:57] LABS: Anisocytosis MODERATE=16-30 cells (100X) (0-5/hpf); Band 39 % (5-11); Hemoglobin 7.5 g/dL (12.0-16.0); Lymphocytes 8 % (21-51); MDiff Complete? YES; Mean Corpuscular HGB CONC 32.9 g/dL (32.0-36.0); Mean Corpuscular Hemoglobin 35.5 pg (27.0-31.0); Mean Platelet Volume 7.6 fL (7.4-10.4); Monocytes 3 % (0-10); Neutrophil 50 % (42-75); Platelet Count 234 thou/uL (130-400); RBC Distribution Width 25.2 % (11.5-14.5); Red Blood Cell (RBC) Count 2.11 mill/uL (4.20-5.40)
[2021-04-02] MEDS ORDERED: Potassium Chloride 40 MEQ in Sodium Chloride 0.9% 250 ML 250 ML IVPB SCH (05:00)
[2021-04-02] MEDS: Albumin 25% 25 GM/100 ML BOT IVPB SCH ×4 (06:32→23:25)
[2021-04-02 07:27] LABS: Phosphorus 2.2 mg/dL (2.3-4.7)
[2021-04-02 07:32] LABS: Magnesium 0.7 mg/dL (1.6-2.6)
[2021-04-02] MEDS ORDERED: Magnesium Sulfate 4 GM in Sodium Chloride 0.9% 250 ML 250 ML IVPB SCH (08:00)
[2021-04-02] MEDS ORDERED: Potassium Chloride 40 MEQ in Premix Bag 1 BAG IVPB SCH ×3 (08:00→18:00)
[2021-04-02] MEDS: Vancomycin 1 GM in Premix Bag 1 BAG IVPB SCH (09:31)
[2021-04-02] MEDS: Thiamine 100 MG TAB PO SCH (09:31)
[2021-04-02] MEDS: Folic Acid 1 MG TAB PO SCH (09:31)
[2021-04-02] MEDS ORDERED: Ventilator Sedation Protocol 1 EACH FS ONE (10:34)
[2021-04-02] MEDS ORDERED: Fentanyl 100 MCG/2 ML VIAL SLOW IVP SCH (10:45)
[2021-04-02] MEDS ORDERED: Propofol 1,000 MG/100 ML VIAL IV PRN (11:00)
[2021-04-02] MEDS ORDERED: Propofol BOLUS 1,000 MG/100 ML VIAL IV PRN (11:00)
[2021-04-02] MEDS ORDERED: Fentanyl BOLUS 250 ML IVPB PRN (11:00)
[2021-04-02] MEDS ORDERED: DISCONTINUE PREVIOUS NARCOTIC PAIN MEDICATIONS AND BENZODIAZEPINES FS SCH (11:00)
[2021-04-02] MEDS ORDERED: Morphine 2 MG/ML VIAL SLOW IVP PRN (11:00)
[2021-04-02] MEDS: fentaNYL Citrate-0.9 % NaCl/PF 100 ML IV PRN (11:58)
[2021-04-02] MEDS: Furosemide 40 MG/4 ML VIAL SLOW IVP SCH ×2 (11:58→23:25)
[2021-04-02 14:35] LABS: Anion Gap 15 mmol/L (10-20); BUN (Urea Nitrogen) 14 mg/dL (7.0-18.7); Calc. Creatinine Clearance 43 mL/min (70-130); Calcium 6.5 mg/dL (7.8-10.44); Carbon Dioxide 28 mmol/L (22-29); Chloride 103 mmol/L (98-107); Glucose 165 mg/dL (70-105); Sodium 143 mmol/L (136-145)
[2021-04-02 14:36] LABS: Magnesium 1.7 mg/dL (1.6-2.6)
[2021-04-02 14:39] LABS: Potassium 2.6 mmol/L (3.5-5.1)
[2021-04-02] MEDS ORDERED: Famotidine/PF 20 mg/2ml Vial SLOW IVP SCH (21:00)
[2021-04-02] MEDS: Heparin 5,000 UNITS/ML VIAL SC SCH (21:15)
[2021-04-02 22:35] LABS: Bilirubin 2+ (Negative); Blood, Urine 2+ (Negative); Clarity Turbid (Clear); Glucose, Urine (Dipstick) Normal (Negative); Ketone, Urine Negative (Negative); Leukocyte Negative Leu/uL (Negative); Nitrite Negative (Negative); Protein, Urine (Dipstick) 30 mg/dL (Neg-Trace); Specific Gravity, Urine 1.018 (1.002-1.036); Urobilinogen Normal mg/dL (Less than 2); pH, Urine 5.5 (5.0-9.0)
[2021-04-02 22:54] LABS: Bacteria/HPF 1+ HPF (None Seen); WBC/HPF 0-3 HPF (0-3)
[2021-04-02 22:56] LABS: Red Blood Cell Cast 0-3 LPF (None Seen)
[2021-04-02 23:03] LABS: Creatinine, Urine 61.78 mg/dL (47-110)
[2021-04-02 23:23] LABS: Anion Gap 17 mmol/L (10-20); BUN (Urea Nitrogen) 14 mg/dL (7.0-18.7); Calc. Creatinine Clearance 45 mL/min (70-130); Calcium 6.7 mg/dL (7.8-10.44); Carbon Dioxide 28 mmol/L (22-29); Chloride 103 mmol/L (98-107); Glucose 130 mg/dL (70-105); Potassium 3.7 mmol/L (3.5-5.1); Sodium 144 mmol/L (136-145)
[2021-04-03] MEDS: Nicotine 21 MG PATCH TD SCH ×2 (01:04→21:59)
[2021-04-03 04:36] LABS: INR-International Normal Ratio 2.2; Prothrombin Time 24.8 sec (12.0-14.7)
[2021-04-03 04:37] LABS: PTT 53.8 sec (22.9-36.1)
[2021-04-03 04:45] LABS: ALT (SGPT) 47 U/L (8-55); AST (SGOT) 262 U/L (5-34); Alkaline Phosphatase 80 U/L (40-110); Anion Gap 15 mmol/L (10-20); BUN (Urea Nitrogen) 13 mg/dL (7.0-18.7); Bilirubin, Total 13.2 mg/dL (0.2-1.2); Calc. Creatinine Clearance 45 mL/min (70-130); Calcium 7.1 mg/dL (7.8-10.44); Carbon Dioxide 32 mmol/L (22-29); Chloride 100 mmol/L (98-107); Globulin 2.6 g/dL (2.4-3.5); Glucose 140 mg/dL (70-105); Magnesium 1.4 mg/dL (1.6-2.6); Protein, Total 5.6 g/dL (6.0-8.3); Sodium 144 mmol/L (136-145)
[2021-04-03 05:06] LABS: Anisocytosis MODERATE=16-30 cells (100X) (0-5/hpf); Band 29 % (5-11); Lymphocytes 11 % (21-51); MDiff Complete? YES; Macrocytosis SLIGHT = 6-15 cells (100X) (0-5/hpf); Mean Corpuscular Hemoglobin 34.9 pg (27.0-31.0); Mean Platelet Volume 7.4 fL (7.4-10.4); Monocytes 2 % (0-10); Neutrophil 58 % (42-75); Platelet Count 150 thou/uL (130-400); RBC Distribution Width 24.7 % (11.5-14.5); Target Cells SLIGHT = 2-5 cells (100X) (0-1/hpf); White Blood Cell (WBC) Count 16.9 thou/uL (4.8-10.8)
[2021-04-03 05:14] LABS: Potassium 2.9 mmol/L (3.5-5.1)
[2021-04-03] MEDS: Piperacillin/Tazobactam 3.375 GM in Sodium Chloride 0.9% 100 ML IVPB SCH ×3 (06:10→21:58)
[2021-04-03] MEDS: Albumin 25% 25 GM/100 ML BOT IVPB SCH ×4 (06:10→21:58)
[2021-04-03] MEDS ORDERED: Potassium Chloride 40 MEQ in Premix Bag 1 BAG IVPB SCH ×2 (06:15→14:15)
[2021-04-03] MEDS ORDERED: Magnesium Sulfate 4 GM in Sodium Chloride 0.9% 250 ML 250 ML IVPB SCH (06:30)
[2021-04-03 07:17] LABS: Actual Bicarbonate (HCO3a) 30.4 mEq/L (22-28); Base Excess (BEa) 5.7 mEq/L (-2.0 to +3.0); CO2 Tension 45.4 mmHg (35.0-45.0); Calcium, Ionized (arterial) 0.92 mmol/L (1.12-1.30); Carboxyhemoglobin (COHb) 1.7 gm% (0.0-3.0); Hemoglobin (Hb) 6.8 g/dL (12.0-16.0); Potassium - ABG Lab 3.48 mmol/L (3.70-5.30); pH, Arterial 7.44 (7.35-7.45)
[2021-04-03 07:20] LABS: O2 Tension (PaO2), arterial 28.5 mmHg (80.0-100.0); Puncture Site RBA
[2021-04-03] MEDS: Heparin 5,000 UNITS/ML VIAL SC SCH ×2 (08:37→21:58)
[2021-04-03] MEDS: Folic Acid 1 MG TAB PO SCH (08:37)
[2021-04-03] MEDS: Thiamine 100 MG TAB PO SCH (08:37)
[2021-04-03] MEDS: Vancomycin 1 GM in Premix Bag 1 BAG IVPB SCH (08:37)
[2021-04-03 09:33] LABS: Base Excess (BEa) 9.5 mEq/L (-2.0 to +3.0); CO2 Tension 47.6 mmHg (35.0-45.0); Calcium, Ionized (arterial) 0.92 mmol/L (1.12-1.30); Carboxyhemoglobin (COHb) 1.9 gm% (0.0-3.0); Hemoglobin (Hb) 7.1 g/dL (12.0-16.0); O2 Tension (PaO2), arterial 62.9 mmHg (80.0-100.0); Potassium - ABG Lab 3.23 mmol/L (3.70-5.30); pH, Arterial 7.47 (7.35-7.45)
[2021-04-03 09:34] LABS: Puncture Site LRB
[2021-04-03] MEDS: Furosemide 40 MG/4 ML VIAL SLOW IVP SCH ×2 (10:25→21:58)
[2021-04-03 13:43] VITALS: BMI 22.1
[2021-04-03 13:47] LABS: Potassium 3.2 mmol/L (3.5-5.1)
[2021-04-03] MEDS: fentaNYL Citrate-0.9 % NaCl/PF 100 ML IV PRN (15:53)
[2021-04-03] MEDS: Norepinephrine 8 MG/0.9% NS 250 ML IVPB SCH (17:04)
[2021-04-03 19:42] LABS: Potassium 3.9 mmol/L (3.5-5.1)
[2021-04-03] MEDS: Famotidine 20 MG TAB PO SCH (21:58)
[2021-04-04] MEDS: Piperacillin/Tazobactam 3.375 GM in Sodium Chloride 0.9% 100 ML IVPB SCH ×3 (04:28→20:17)
[2021-04-04] MEDS: Albumin 25% 25 GM/100 ML BOT IVPB SCH (04:28)
[2021-04-04 06:17] LABS: ALT (SGPT) 31 U/L (8-55); AST (SGOT) 174 U/L (5-34); Albumin 4.5 g/dL (3.5-5.0); Alkaline Phosphatase 78 U/L (40-110); Anion Gap 24 mmol/L (10-20); BUN (Urea Nitrogen) 16 mg/dL (7.0-18.7); Bilirubin, Total 14.4 mg/dL (0.2-1.2); Calc. Creatinine Clearance 46 mL/min (70-130); Calcium 8.1 mg/dL (7.8-10.44); Carbon Dioxide 27 mmol/L (22-29); Chloride 98 mmol/L (98-107); Globulin 2.6 g/dL (2.4-3.5); Glucose 92 mg/dL (70-105); Potassium 3.8 mmol/L (3.5-5.1); Protein, Total 7.1 g/dL (6.0-8.3); Sodium 145 mmol/L (136-145)
[2021-04-04 07:11] LABS: Band 31 % (5-11); Burr Cells SLIGHT = 2-5 cells (100X) (0-1/hpf); Eosinophils 3 % (0-10); Hemoglobin 6.2 g/dL (12.0-16.0); Hypochromia SLIGHT = 6-15 cells (100X) (0-5/hpf); Lymphocytes 9 % (21-51); MDiff Complete? YES; Macrocytosis MODERATE=16-30 cells (100X) (0-5/hpf); Mean Corpuscular Hemoglobin 35.8 pg (27.0-31.0); Mean Platelet Volume 9.1 fL (7.4-10.4); Monocytes 2 % (0-10); Neutrophil 55 % (42-75); Platelet Count 121 thou/uL (130-400); Platelet Morphology Comment Appears Decreased; Polychromasia MODERATE = 3-4 cells (100X) (0-2/hpf); RBC Distribution Width 24.3 % (11.5-14.5); Red Blood Cell (RBC) Count 1.73 mill/uL (4.20-5.40); Schistocytes SLIGHT = 2-5 cells (100X) (0-1/hpf); Target Cells MODERATE= 6-15 cells (100X) (0-1/hpf); White Blood Cell (WBC) Count 19.1 thou/uL (4.8-10.8)
[2021-04-04] MEDS ORDERED: Magnesium 2 GM/50 ML 2 GM in Premix Bag 1 BAG IVPB SCH (08:00)
[2021-04-04] MEDS: Thiamine 100 MG TAB PO SCH (08:29)
[2021-04-04] MEDS: Norepinephrine 8 MG/0.9% NS 250 ML IVPB SCH ×2 (08:29→23:13)
[2021-04-04] MEDS: Folic Acid 1 MG TAB PO SCH (08:29)
[2021-04-04] MEDS: Vancomycin 1 GM in Premix Bag 1 BAG IVPB SCH (08:29)
[2021-04-04] MEDS: Heparin 5,000 UNITS/ML VIAL SC SCH (08:29)
[2021-04-04 10:03] LABS: Vancomycin, Trough 24.5 ug/mL
[2021-04-04] MEDS: Furosemide 40 MG/4 ML VIAL SLOW IVP SCH (10:28)
[2021-04-04] MEDS: Lorazepam 2 MG/ML VIAL SLOW IVP PRN (11:45)
[2021-04-04 18:22] LABS: Hemoglobin 7.8 g/dL (12.0-16.0)
[2021-04-04 18:44] LABS: SARS-CoV-2 PCR by NAA Not Detected (NotDetected)
[2021-04-04] MEDS ORDERED: Fentanyl CADD 100 ML IV SCH ×2 (18:45→19:45)
[2021-04-04] MEDS: Famotidine 20 MG TAB PO SCH (20:17)
[2021-04-04] MEDS: Nicotine 21 MG PATCH TD SCH (23:17)
[2021-04-05] MEDS: Piperacillin/Tazobactam 3.375 GM in Sodium Chloride 0.9% 100 ML IVPB SCH (04:26)
[2021-04-05 04:49] LABS: Band 16 % (5-11); Eosinophils 1 % (0-10); Hemoglobin 7.9 g/dL (12.0-16.0); Hypochromia SLIGHT = 6-15 cells (100X) (0-5/hpf); Lymphocytes 10 % (21-51); MDiff Complete? YES; Macrocytosis SLIGHT = 6-15 cells (100X) (0-5/hpf); Mean Corpuscular HGB CONC 32.5 g/dL (32.0-36.0); Mean Platelet Volume 8.8 fL (7.4-10.4); Monocytes 19 % (0-10); Neutrophil 54 % (42-75); Platelet Count 127 thou/uL (130-400); Platelet Morphology Comment Appears Decreased; RBC Distribution Width 23.8 % (11.5-14.5); Red Blood Cell (RBC) Count 2.26 mill/uL (4.20-5.40); White Blood Cell (WBC) Count 20.3 thou/uL (4.8-10.8)
[2021-04-05 05:15] LABS: ALT (SGPT) 27 U/L (8-55); AST (SGOT) 142 U/L (5-34); Albumin 3.5 g/dL (3.5-5.0); Alkaline Phosphatase 84 U/L (40-110); Anion Gap 17 mmol/L (10-20); BUN (Urea Nitrogen) 23 mg/dL (7.0-18.7); Bilirubin, Total 17.9 mg/dL (0.2-1.2); Calc. Creatinine Clearance 36 mL/min (70-130); Carbon Dioxide 31 mmol/L (22-29); Chloride 99 mmol/L (98-107); Globulin 2.5 g/dL (2.4-3.5); Glucose 91 mg/dL (70-105); Magnesium 2.4 mg/dL (1.6-2.6); Potassium 3.4 mmol/L (3.5-5.1); Sodium 144 mmol/L (136-145)
[2021-04-05] MEDS ORDERED: Potassium Chloride 40 MEQ in Premix Bag 1 BAG IVPB SCH (06:30)
[2021-04-05] MEDS: Thiamine 100 MG TAB PO SCH (08:45)
[2021-04-05] MEDS: Folic Acid 1 MG TAB PO SCH (08:45)
[2021-04-05] MEDS: Vancomycin 1 GM in Premix Bag 1 BAG IVPB SCH (08:45)
[2021-04-05 10:16] VITALS: TEMP 97.6
[2021-04-05 10:33] VITALS: BP 107/76
== END 2021-04-05 10:51 | disposition hospice, inpatient (51) | DRG 870 ==
LOC: ERS 19:07 → SURG A 22:08 → IMCU/EMU 03-31 20:54 → CCU 04-01 04:54
PROVIDERS: ADMIT Family Medicine; ATTEND Family Medicine
PROC: XW03396 Introduction of Ceftolozane/Tazobactam Anti-infective into Peripheral Vein, Percutaneous Approach, New Technology Group 6 (ICD-10-PCS; 2021-03-28)
PROC: 30233N1 Transfusion of Nonautologous Red Blood Cells into Peripheral Vein, Percutaneous Approach (ICD-10-PCS; 2021-03-29)
PROC: 3E033XZ Introduction of Vasopressor into Peripheral Vein, Percutaneous Approach (ICD-10-PCS; 2021-03-31)
PROC: 5A09357 Assistance with Respiratory Ventilation, Less than 24 Consecutive Hours, Continuous Positive Airway Pressure (ICD-10-PCS; 2021-03-31)
PROC: 06HY33Z Insertion of Infusion Device into Lower Vein, Percutaneous Approach (ICD-10-PCS; principal; 2021-04-01)
PROC: B54BZZA Ultrasonography of Right Lower Extremity Veins, Guidance (ICD-10-PCS; 2021-04-01)
PROC: 5A1955Z Respiratory Ventilation, Greater than 96 Consecutive Hours (ICD-10-PCS; 2021-04-01)
PROC: 0BH18EZ Insertion of Endotracheal Airway into Trachea, Via Natural or Artificial Opening Endoscopic (ICD-10-PCS; 2021-04-01)
PROC: 30233J1 Transfusion of Nonautologous Serum Albumin into Peripheral Vein, Percutaneous Approach (ICD-10-PCS; 2021-04-01)
PROC: 0B918ZZ Drainage of Trachea, Via Natural or Artificial Opening Endoscopic (ICD-10-PCS; 2021-04-01)
DX: A41.89 Other specified sepsis (principal); K72.00 Acute and subacute hepatic failure without coma; G92.8 Other toxic encephalopathy; E43 Unspecified severe protein-calorie malnutrition; J80 Acute respiratory distress syndrome; R57.8 Other shock; K76.7 Hepatorenal syndrome; I21.A1 Myocardial infarction type 2; E87.1 Hypo-osmolality and hyponatremia; R64 Cachexia; J90 Pleural effusion, not elsewhere classified; B15.9 Hepatitis A without hepatic coma; E87.4 Mixed disorder of acid-base balance; E87.3 Alkalosis; N17.9 Acute kidney failure, unspecified; J81.1 Chronic pulmonary edema; K80.00 Calculus of gallbladder with acute cholecystitis without obstruction; K92.0 Hematemesis; E87.2 Acidosis; K70.11 Alcoholic hepatitis with ascites; Z66 Do not resuscitate; Z51.5 Encounter for palliative care; D53.9 Nutritional anemia, unspecified; E87.6 Hypokalemia; E87.8 Other disorders of electrolyte and fluid balance, not elsewhere classified; I10 Essential (primary) hypertension; F31.9 Bipolar disorder, unspecified; K21.9 Gastro-esophageal reflux disease without esophagitis; F17.210 Nicotine dependence, cigarettes, uncomplicated; K43.9 Ventral hernia without obstruction or gangrene; K76.89 Other specified diseases of liver; F19.10 Other psychoactive substance abuse, uncomplicated; K72.10 Chronic hepatic failure without coma; E83.42 Hypomagnesemia; A53.9 Syphilis, unspecified; Z20.822 Contact with and (suspected) exposure to COVID-19; Z90.710 Acquired absence of both cervix and uterus; Z81.8 Family history of other mental and behavioral disorders; Z98.890 Other specified postprocedural states; Z82.49 Family history of ischemic heart disease and other diseases of the circulatory system; Z83.3 Family history of diabetes mellitus; Z68.22 Body mass index [BMI] 22.0-22.9, adult; I45.81 Long QT syndrome; F10.20 Alcohol dependence, uncomplicated
CPT/HCPCS: 36415; 36416; 36430; 36600; 71045; 74018; 74177; 76700; 76705; 80053; 80074; 80202; 80306; 80307; 81001; 81003; 82140; 82247; 82274; 82390; 82533; 82570; 82607; 82728; 82746; 82805; 82977; 83540; 83550; 83605; 83615; 83690; 83735; 83880; 84100; 84145; 84300; 84425; 84443; 84484; 85025; 85046; 85060; 85610; 85652; 85730; 86140; 86593; 86780; 86850; 86900; 86901; 87040; 87070; 87086; 87205; 87389; 93005; 93010; 93306; 94002; 94003; 94640; 94660; 96365; 96375; J1644; J1940; J2060; J2543; J3010; J3370; J3475; J3480; J3490; J7050; J7070; J7120; J7620; P9016; P9047; Q9967; S0028; U0002; U0003; U0005

== ENCOUNTER 2021-04-05 11:05 | Inpatient (IN) | payer OTHER ==
[2021-04-05] MEDS ORDERED: Lorazepam 2 MG/ML VIAL SLOW IVP PRN ×2 (11:34→11:45)
[2021-04-05] MEDS ORDERED: Morphine 4 MG/ML VIAL SLOW IVP PRN ×3 (11:34→12:18)
[2021-04-05] MEDS ORDERED: Bisacodyl 10 MG SUPP PR PRN ×2 (11:36→12:19)
[2021-04-05] MEDS ORDERED: Haloperidol Lactate 5 MG/ML VIAL SLOW IVP PRN ×2 (11:45→12:16)
[2021-04-05] MEDS ORDERED: Ondansetron PF 4 MG/2 ML Vial IVP PRN ×2 (11:45→12:19)
[2021-04-05] MEDS ORDERED: Acetaminophen 650 MG Suppository PR PRN ×2 (11:45→12:19)
[2021-04-05] MEDS: Morphine 4 MG/ML VIAL SLOW IVP PRN ×2 (12:25→12:50)
[2021-04-05] MEDS: Lorazepam 2 MG/ML VIAL SLOW IVP PRN ×2 (12:25→12:51)
== END 2021-04-05 12:56 | disposition expired | DRG 951 ==
LOC: CCU 11:05
PROVIDERS: ADMIT Family Medicine; ATTEND Family Medicine
DX: Z51.5 Encounter for palliative care (principal); J80 Acute respiratory distress syndrome; I21.4 Non-ST elevation (NSTEMI) myocardial infarction; A41.9 Sepsis, unspecified organism; K81.0 Acute cholecystitis; N17.9 Acute kidney failure, unspecified; J81.1 Chronic pulmonary edema; E87.2 Acidosis; E87.3 Alkalosis; E87.1 Hypo-osmolality and hyponatremia; R57.8 Other shock; K70.10 Alcoholic hepatitis without ascites; K72.10 Chronic hepatic failure without coma; Z66 Do not resuscitate; D53.9 Nutritional anemia, unspecified; E87.6 Hypokalemia; E83.42 Hypomagnesemia; I10 Essential (primary) hypertension; K21.9 Gastro-esophageal reflux disease without esophagitis; F17.200 Nicotine dependence, unspecified, uncomplicated
CPT/HCPCS: J2060; J2270